=== PATIENT | male | born 1955 | race Caucasian/White ===

== ENCOUNTER 2021-02-08 11:38 | Day surgery (SDC) | payer OTHER, SELFPAY ==
[2021-02-08] VITALS (7 sets, daily range): BP systolic 110–152; BP diastolic 76–92; PULSE 78–85; RESP 16–18; TEMP 36.3–36.9; O2SAT 97–100; BMI 20.2
[2021-02-08] MEDS: Lactated Ringers 1,000 ML 100 ML IV (12:51)
--- NOTE | 2021-02-08 13:14 | HP.PCM_ITS ---
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: No Is patient in pain?: No Allergies No Known Allergies Allergy (Verified 02/02/21 09:13) Medications acetaminophen 325 mg capsule 650 mg PO Q4H PRN cap 01/24/21 [History Confirmed 02/02/21] albuterol sulfate 90 mcg/actuation aerosol inhaler 1 puff INHALATION Q4H PRN g 01/24/21 [History Confirmed 02/02/21] ascorbic acid (vitamin C) 500 mg capsule 500 mg PO DAILY cap 01/24/21 [History Confirmed 02/02/21] cholecalciferol (vitamin D3) 25 mcg (1,000 unit) capsule 25 mcg PO DAILY 01/24/21 [History Confirmed 02/02/21] vitamin B complex 1 tab PO DAILY 01/24/21 [History Confirmed 02/02/21] PFSH Medical History Disorder of tendon Mass of right lung Surgical History History of lung biopsy Hx of appendectomy Family History Mother Alzheimer disease Father Lung cancer Social History current occupational status: employed Smoking Status: Former smoker alcohol intake: current substance use type: marijuana HPI HPI HPI: LARA MARTÍNEZ, is a 65 M who presents to the office today for chest port placement. Patient had a right lung cancer and had right pneumonectomy presents for right chest port placement. ROS General General: Yes weight change and fatigue; No appetite, colon cancer, breast cancer or weakness HEENT HEENT: No difficulty swallowing, eye injury, eye surgery, swollen glands or hoarseness Endo Endocrine: No thyroid disease, diabetes mellitus, thyroid cancer, Hair loss, heat intolerance or cold intolerance Skin Skin: No rash or changing moles Breast Breast: No left breast lump, right breast lump, nipple discharge, breast pain, abnormal mammogram, abnormal US or breast enlargement Musc Musculoskeletal: No back problems, arthritis, rheumatoid arthritis, gout or joint pain Cardio Cardiovascular: No murmur, pacemaker, heart disease, atrial fibrillation, high blood pressure, heart attack, heart stent, palpitations, shortness of breat with exertion or chest pain Psych Psychiatric: No depression, anxiety or hearing voices Resp Respiratory: Yes shortness of breath, No sleep apnea, No cough, Yes COPD, No ast hma, No emphysema and No wheezing Gastro Gastrointestinal: No abdominal pain, No nausea or vomiting, No diarrhea, No constipation, No blood in stool, No acid reflux, No hemorrhoids, No ulcers, No gallbladder problem and No black,tarry stools Alonzo Hematologic: No blood thinners, No blood disorders, No bleeding, No anemia and No blood clots Neuro Neurologic: No system reviewed and no additional complaints, except as documented, No as per HPI, No abnormal gait, No abnormal hearing, No abnormal movements, No abnormal speech, No behavioral changes, No burning sensations, No confusion, No convulsions, No disequilibrium, No dizziness, No localized weakness, No frequent falls, No headache(s), No lack of coordination, No loss of vision, No memory loss, No numbness, No other visual disturbances, No radicular pain, No restless legs, No sensory deficit, No syncope, No tingling, No tremor(s), No weakness and No other Exam Const General: cooperative Orientation: alert and oriented x3 HENMT Head: normal to inspection Neck Neck: normal visual inspection and full ROM Chest Chest palpation & inspection: normal inspection of the chest Resp Effort & Inspection: normal respiratory effort Auscultation: clear to auscultation bilaterally Cardio Rate: regular rate Rhythm: regular rhythm GI Inspection: non-distended Palpation: soft and nontender Skin General: no rashes or lesions noted Neuro General: patient alert and patient oriented x3 Extrem General: full ROM Psych Appearance: grossly normal Mental Status: mental status grossly normal Assessment and Plan Assessment and Plan (1) Primary lung adenocarcinoma: Status: Acute Qualifiers: Laterality: right Qualified Code(s): C34.91 - Malignant neoplasm of unspecified part of right bronchus or lung Comment: R lung adenocarcinoma stage IIIA(pT3 pN1 M0) s/p R pneumonectomy. Discussed disease status, adjuvant chemotherapy, risks, benefits and side effects. Pt agreed to proceed. Discussed Cisplatin and Alimta IV x 4 cycles. If EGFR is positive then will do EGFR betty after chemotherapy. (2) Encounter for adjustment and management of vascular access device: Status: Acute Plan - Dr. Robert Fonseca MD: I discussed chest port placement with the patient in detail. I discussed the risks including but not limited to bleeding, infection, DVT. Patient understands the risks and is willing to proceed with right chest port placement. Robert Fonseca MD Pager: [facility] [address] [place] [address], [address] [place] [address] Office: I have re-examined the patient. There are no clinical changes since date of exam.
--- NOTE | 2021-02-08 13:33 | SUR.PREOP ---
R AC infiltration; LR infiltration. Patient's came and told this nurse. This nurse stopped gravity gtts. IV discontinued in r ac. New IV started in left AC. 22g. Good blood return noted and gtt to gravity. Patient tolerated well.
[2021-02-08] MEDS: Cefazolin 2 GM in 0.9% Normal Saline 100 ML IV (14:40)
[2021-02-08] MEDS: Bupivacaine Mpf 0.5% 30 ML VIAL (14:57)
[2021-02-08] MEDS: Lidocaine 1% /Epi 1:100 (20ml) 20 ML Vial (14:57)
--- NOTE | 2021-02-08 15:30 | RAD_ITS ---
STUDY: X-RAY CHEST REASON FOR EXAM: Male, 65 years old. Line placement -- in pacu TECHNIQUE: Single AP portable view of the chest. COMPARISON: None. FINDINGS: A right-sided Port-A-Cath has been placed. The tip is at the junction of the superior vena cava and right atrium. Large right pleural effusion with underlying infiltration and/or atelectasis. The left lung is clear. Normal size heart. Normal mediastinum and bebeto. Normal visualized pulmonary arteries. Normal visualized aortic arch and descending thoracic aorta. There are diffuse degenerative changes of the visualized thoracic spine. Normal visualized ribs, clavicles, and shoulders. There is no demonstrated abnormality of the visualized soft tissue structures of the upper abdomen. RAD/CXR for Line Placement IMPRESSION: The tip of the right nilay catheter is at the junction of the superior vena cava and right atrium. Large right pleural effusion with underlying infiltration and/or atelectasis. The left lung is clear. Electronically Signed: Sal Wiseman MD at 15:55 EDT , Service support ,
--- NOTE | 2021-02-08 15:31 | PCM.OPRPT ---
Problems Associated Problem List Diagnoses (1) Primary lung adenocarcinoma: (2) Encounter for adjustment and management of vascular access device: Report of Operation Date of Procedure: 02/08/21 Pre-Operative Diagnosis: Lung cancer need for vascular access for chemotherapy Post-Operative Diagnosis: Same Surgery/Procedure Performed:: Ultrasound and fluoroscopy guided right chest port placement utilizing right IJ Description of Procedure: After obtaining informed consent patient was brought back to the operating room MAC anesthesia was induced and the right chest and neck were prepped in normal sterile fashion. Ultrasound was used to evaluate both IJs and the right IJ was selected. Next, using a needle, the right IJ was accessed and a guidewire was passed on into the superior vena cava under fluoroscopy guidance. A small incision was made over the puncture site and the dilator introducer was placed over the guidewire. Next this was capped and the pocket was made for the port. 1% lidocaine with epinephrine was injected in the proposed port site. An incision was made with scalpel. Electrocautery was used to make a pocket under the skin and subcutaneous tissue. Hemostasis was obtained. Next, the catheter was tunneled up to the neck incision site and placed through the introducer. The peel-away introducer was removed and the position of the catheter was confirmed on fluoroscopy. Next, the catheter was trimmed and attached to the port with the locking device. Interrupted 2-0 Vicryl sutures were used to anchor the port to the chest wall and then the port was placed inside the pocket. The pocket was then flushed with saline and the port irrigated with saline. There was good blood return and the port flushed easily. Next, heparin was injected into the port. The skin was closed with subcutaneous interrupted 3-0 Vicryl sutures. A single 3-0 Vicryl sutures placed under the skin at the neck incision site. Steri-Strips were placed as well as op sites. Patient tolerated procedure well, was taken to PACU in stable condition. Chest x-ray will be obtained. Grafts/Implants Used: 8 [place] PowerPort Admit VTE Documentation VTE Mechan Device Prophylaxis: SCD's
--- NOTE | 2021-02-08 15:32 | EX.PCM.DISCH ---
Discharge Instructions Procedure Port-A-Cath Diet Discharge Diet: Light diet - advance as tolerated (Pain medication may cause nausea. You should typically eat light foods as you take your pain medication.) Activity Discharge Activity: Return to Normal Activity and May Shower (with your bandage in place in 1-2 days after surgery. ) Dressing / Incision Call your doctor if your incision/area has: Continuous Slow Oozing, Sudden Increased Bleeding, Increased Pain/ Swelling, Increased Redness and Foul Smelling Discharge Call your doctor if you observe: Fever of 101 or Higher Remove Dressing in: 2 days Cleanse incision/area with: Soap & Water Follow Up Care Please Follow Up With: Robert Fonseca MD When: as needed [phone] Test Results: Test results from this visit will be discussed in further detail at your follow-up appointment, if applicable. Discharge Plan Admission Attending Provider: Robert Fonseca Primary Care Provider: Raj Askew Discharge Orders/Prescriptions Prescriptions: No Action acetaminophen 325 mg capsule 650 mg PO Q4H PRN (Reason: Pain) RF: 0 albuterol sulfate 90 mcg/actuation HFA aerosol inhaler 1 puff inhalation Q4H PRN (Reason: shortness of breath or wheezing) RF: 0 ascorbic acid (vitamin C) 500 mg capsule 500 mg PO DAILY RF: 0 cholecalciferol (vitamin D3) 25 mcg (1,000 unit) capsule 25 mcg PO DAILY RF: 0 vitamin B complex Tablet 1 tab PO DAILY RF: 0 Referrals / Follow Up: Raj Askew DO [Primary Care Provider] - Disposition Disposition (needs filled in before D/C Order can be placed): Home, Self Care
== END 2021-02-08 16:30 | disposition home or self-care (01) ==
LOC: SDC 11:43 → AC 11:44
PROVIDERS: PCP Student in an Organized Health Care Education/Training Program; Referring Provider Surgery; Visit Provider Surgery
PROC: (CPT 36561; principal; 2021-02-08 13:20)
DX: Z45.2 Encounter for adjustment and management of vascular access device (principal); C34.91 Malignant neoplasm of unspecified part of right bronchus or lung; Z87.891 Personal history of nicotine dependence; Z90.2 Acquired absence of lung [part of]; J44.9 Chronic obstructive pulmonary disease, unspecified; G25.81 Restless legs syndrome
CPT/HCPCS: 00532; 36561; 71045; 77001; J7120; C1788

== ENCOUNTER → 2021-03-07 13:46 | Outpatient (CLI) | payer OTHER, SELFPAY ==
--- NOTE | 2021-03-07 13:49 | EKG12_ITS ---
Test Reason : Blood Pressure : / mmHG Vent. Rate : 081 BPM Atrial Rate : 081 BPM P-R Int : 142 ms QRS Dur : 080 ms QT Int : 378 ms P-R-T Axes : 025 031 059 degrees QTc Int : 439 ms Normal sinus rhythm Normal ECG Confirmed by MARK BOLAÑOS, MIRIAN ([id number]), map editor JUAN MUNOZ ([id number]) on 03/08/2021 8:39:53 AM Referred By: Lissa Alex Confirmed By:MIRIAN FLORES MD
== END ==
PROVIDERS: PCP Student in an Organized Health Care Education/Training Program; Referring Provider Nurse Practitioner Family; Visit Provider Nurse Practitioner Family
DX: R07.9 Chest pain, unspecified (principal)
CPT/HCPCS: 36591; 80053; 83615; 85025; 93005; 96360; 96361; J7030; A4216

== ENCOUNTER 2021-05-25 12:33 | Outpatient (CLI) | payer OTHER, SELFPAY ==
--- NOTE | 2021-05-25 12:37 | CT_ITS ---
STUDY: CT CHEST T ABDOMEN WITH CONTRAST REASON FOR EXAM: Male, 65 years old. NSCLC; surveillance; RUQ pain RADIATION DOSAGE (If Supplied By Facility): CTDIvol = ( 8.75 ) mGy, DLP = ( 379.11 ) mGycm TECHNIQUE: Transaxial imaging was performed following intravenous administration of IV 100mL Isovue-300. Individualized dose optimization techniques were used for this CT. COMPARISON: No relevant priors. FINDINGS: CHEST A right-sided portacatheter is in situ. The tip is in the superior vena cava. The patient is status post right pneumonectomy. The right hemithorax is filled with fluid. There is shift of the heart and mediastinal structures towards the right side of the midline. There is compensatory hyperinflation of the left lung. There is a 9.3 mm spiculated nodular density in the anterior aspect of the left lower lobe abutting the anterior aspect of the left major fissure. Correlation with a PET scan is recommended. There is also evidence of a 3.5 mm noncalcified nodule in the peripheral lateral aspect of the anterior portion of the left lower lobe as seen on axial image #44. There are calcifications of the coronary arteries. Normal mediastinum. Normal hilar regions. Normal unenhanced pulmonary arteries. There is atherosclerotic calcification of the aortic arch with tortuosity and elongation of the aortic arch and descending thoracic aorta. There are multi-level degenerative changes of the thoracic spine. ABDOMEN Normal liver. The gallbladder is contracted. Normal spleen. Normal pancreas. Normal bilateral adrenal glands. Normal right kidney. There is 9.2 mm cyst in the upper lateral aspect of the left kidney. Normal visualized stomach. Normal small intestine. Normal colon. The appendix is visualized and appears normal. There is diffuse atherosclerotic calcification of the abdominal aorta and its major visceral branches, without a demonstrated aneurysm. Normal inferior vena cava. Normal retroperitoneum. Normal abdominal wall. There are diffuse degenerative changes of the visualized lumbar spine. CT/CT Chest AND Abd W/ Contrast IMPRESSION: 19.3 mm spiculated nodule in the anterior aspect of the left lower lobe. There is also evidence of a 3.5 mm noncalcified nodule in the peripheral lateral aspect of the left lower lobe. Correlation with a PET scan is recommended. The patient is status post right pneumonectomy with the fluid filling the right hemithorax. This is a normal postoperative appearance. Electronically Signed: Sal Wiseman MD at 14:39 EST ,
== END 2021-05-25 23:59 | disposition home or self-care (01) ==
PROVIDERS: PCP Student in an Organized Health Care Education/Training Program; Referring Provider Nurse Practitioner Family; Visit Provider Nurse Practitioner Family
DX: C34.91 Malignant neoplasm of unspecified part of right bronchus or lung (principal); R10.11 Right upper quadrant pain
CPT/HCPCS: 71260; 74160; Q9967

== ENCOUNTER 2021-06-05 08:19 | Outpatient (CLI) | payer OTHER, SELFPAY ==
--- NOTE | 2021-06-05 13:04 | PFTCOMP_ITS ---
COMPLETE PULMONARY FUNCTION TEST INTERPRETATION Brief HPI: Patient is a 65 year old male, currently under the care of Dr. Worrell, who presents to [facility] for complete pulmonary function tests secondary to diagnosis of COPD. Respiratory therapist reports good effort and reproducible results. Interpretation: Forced expiration spirometry shows a severe large airways obstructive ventilatory defect with an FEV1 of 49% predicted. There is no significant bronchodilator response by strict ATS criteria. Spirograms are of good quality and plateau slowly, indicating slowly emptying areas of the lungs. The respiratory flow volume loop shows decreased expiratory flow rates at all lung volumes consistent with airway obstruction. Lung volumes by body plethysmography show a decreased total lung capacity at 4.1 L, 70% predicted. All other lung volumes are reduced symmetrically. Diffusion capacity by carbon monoxide is normal at 73% predicted. The airway resistance is slightly elevated. No previous pulmonary function tests were available for review. Impression: Irreversible severe mixed ventilatory defect with relatively preserved diffusion capacity
== END 2021-06-05 23:59 | disposition home or self-care (01) ==
PROVIDERS: PCP Student in an Organized Health Care Education/Training Program; Referring Provider Internal Medicine Critical Care Medicine; Visit Provider Internal Medicine Critical Care Medicine
DX: J44.9 Chronic obstructive pulmonary disease, unspecified (principal)
CPT/HCPCS: 94060; 94726; 94729

== ENCOUNTER 2021-06-19 12:25 | Outpatient (CLI) | payer OTHER, SELFPAY ==
[2021-06-19 12:50] VITALS: PULSE 85; PULSE 86; PULSE 87; PULSE 89; PULSE 90; PULSE 91; O2SAT 95; O2SAT 96; O2SAT 97; O2SAT 98; O2SAT 99
--- NOTE | 2021-06-19 15:44 | PCM.PSN.6M ---
PSN 6 Minute Walk Test 6 Minute Walk Test 6 Minute Walk Test: 6 Minute Walk Test PSN:6-Minute Walk Test Start: 06/19/21 12:50 Freq: Status: Active Protocol: [id number].6MINW Document 06/19/21 12:50 GARRETT (Rec: 06/19/21 12:52 GARRETT [id number]) 6 Minute Walk Test Date Performed 06/19/21 Time Performed 12:30 Height 5 ft 7 in Weight: 59.874 kg Weight in Pounds 132.[address]: Dioni Worrell Assistive device used: None Pre-test Oxygen Delivery Method Room Air Pulse Ox (%) 99 Pulse Rate (60-100 beats/min) 86 Dyspnea Allyssa Scale (0-10) 0 Exertion Allyssa Scale (6-20) 6 1st minute Oxygen Delivery Method Room Air Pulse Ox (%) 99 Pulse Rate (60-100 beats/min) 87 2nd minute Oxygen Delivery Method Room Air Pulse Ox (%) 97 Pulse Rate (60-100 beats/min) 89 3rd minute Oxygen Delivery Method Room Air Pulse Ox (%) 96 Pulse Rate (60-100 beats/min) 90 4th minute Oxygen Delivery Method Room Air Pulse Ox (%) 95 Pulse Rate (60-100 beats/min) 90 5th minute Oxygen Delivery Method Room Air Pulse Ox (%) 97 Pulse Rate (60-100 beats/min) 91 6th minute Oxygen Delivery Method Room Air Pulse Ox (%) 96 Pulse Rate (60-100 beats/min) 90 Dyspnea Allyssa Scale (0-10) 3 Exertion Allyssa Scale (6-20) 12 Post-test Oxygen Delivery Method Room Air Pulse Ox (%) 98 Pulse Rate (60-100 beats/min) 85 Interpretation Interpretation: The patient was able to ambulate 1072 feet over the course of 6 minutes on room air with no assistive devices or breaks. The patient experienced no significant desaturations or tachycardia during testing. These findings are consistent with a musculoskeletal limitation exercise tolerance. Recommendations Recommendations: No supplemental oxygen is indicated at this time.
== END 2021-06-19 23:59 | disposition home or self-care (01) ==
LOC: PSN 12:26
PROVIDERS: PCP Student in an Organized Health Care Education/Training Program; Referring Provider Internal Medicine Critical Care Medicine; Visit Provider Internal Medicine Critical Care Medicine
DX: J44.9 Chronic obstructive pulmonary disease, unspecified (principal)
CPT/HCPCS: 94618

== ENCOUNTER 2021-06-20 10:29 | Emergency (ER) | payer OTHER, SELFPAY ==
[2021-06-20 10:30] VITALS: BP 168/91; PULSE 81; RESP 18; TEMP 36.6; O2SAT 100; BMI 20.7
--- NOTE | 2021-06-20 10:44 | EDS_ITS ---
HPI History of Present Illness Chief Complaint: Back Informant: patient Onset/Context/Timing Onset: Weeks (1.5) Timing: Intermittent Quality: Sharp Location: Thoracic Worsened by: improves with - (Coughing) Relieved by: Nothing Associated Symptoms Associated Symptoms: Negative for Numbness, Tingling, Radiation to Right Leg, Radiation to Left Leg, Fever, Abdominal Pain, Dysuria, Unable to Ambulate, Unable to Transfer, Urinary Retention, Urinary Incontinence, Constipation and Fecal Incontinence Narrative Narrative: Patient presents with back pain that has been getting worse over the past week and a half. Patient states it has been intermittent. Patient states it is over the left thoracic paraspinal area. Patient describes the pain as sharp. Patient denies any trauma or injury. Patient denies any radiation of the pain. Patient denies any paresthesias or weakness. Patient denies any bowel or bladder changes. Patient denies any saddle anesthesia. [facility] Medical History Alcohol use Arthritis Cancer Chest pain CINV (chemotherapy-induced nausea and vomiting) Constipation Dehydration Disorder of tendon Encounter for chemotherapy management Encounter for education Former smoker Hx of cancer of lung Leg cramps Marijuana use Mass of right lung Restless legs RUQ pain Shortness of breath on exertion Home Medications acetaminophen 325 mg capsule 650 mg PO Q4H PRN cap 01/24/21 [History Last Taken Unknown] albuterol sulfate 90 mcg/actuation aerosol inhaler 1 puff INHALATION Q4H PRN g 01/24/21 [History Last Taken Unknown] ascorbic acid (vitamin C) 500 mg capsule 500 mg PO DAILY cap 01/24/21 [History Last Taken Unknown] cholecalciferol (vitamin D3) 25 mcg (1,000 unit) capsule 25 mcg PO DAILY 01/24/21 [History Last Taken Unknown] vitamin B complex 1 tab PO DAILY 01/24/21 [History Last Taken Unknown] dexamethasone 4 mg tablet 4 mg PO .COMPLEX #3 tab 02/15/21 [Rx Last Taken Unknown] folic acid 1 mg tablet 1 mg PO DAILY #90 tab 02/15/21 [Rx Last Taken Unknown] lidocaine-prilocaine 2.5 %-2.5 % topical cream 1 applic TOPICAL ONCE PRN 30 Days #30 g 02/15/21 [Rx Last Taken Unknown] ondansetron 8 mg disintegrating tablet 8 mg PO Q8H PRN #30 tab 02/15/21 [Rx Last Taken Unknown] pantoprazole 40 mg tablet,delayed release 40 mg PO DAILY #30 tab 03/07/21 [Rx Last Taken Unknown] Allergy/AdvReac Type Severity Reaction Status Date / Time No Known Allergies Allergy Verified 06/20/21 10:32 Family History Mother Alzheimer disease Father Lung cancer Surgical History History of lung biopsy Hx of appendectomy Social History current occupational status: employed Smoking Status: Former smoker quit date: 10/19/20 pack-years: 1 Tobacco: How many years used: 45 second hand exposure: No alcohol intake: current details: 8 beers daily substance use type: marijuana christophe/restorationism: Baptism seatbelt use: sometimes do you feel safe at home: Yes ROS ROS ED Constitutional Constitutional ED: Denies chills or fever(s) Eyes Eyes: Denies blurry vision or change in vision ENT ENT ED: Denies rhinorrhea or sore throat Cardiovascular Cardiovascular: Denies chest pain or palpitations Respiratory/Chest Respiratory/Chest: Reports cough; Denies dyspnea Gastrointestinal Gastrointestinal: Denies nausea or vomiting Genitourinary Genitourinary ED: Denies dysuria or hematuria Musculoskeletal Musculoskeletal: Reports back pain; Denies neck pain Integumentary Denies abscess or rash Neurologic Neurologic: Denies headache(s) or weakness Allergic/Immunologic Allergic/Immunologic ED: Denies mouth swelling or urticaria EXAM Physical Exam Const Vital Signs: 06/20/21 10:30 Temperature 98 F Temperature Source Temporal Pulse Rate 81 Respiratory Rate 18 Blood Pressure 168/91 H Blood Pressure Mean 116 Pulse Ox 100 Oxygen Delivery Method Room Air Positive well nourished and well developed General Appearance ED: well developed and NAD HEENT Reports moist mucous membranes Neck supple and no JVD Resp normal respiratory effort Auscultation: diminished lung sounds right Cardio regular rate and regular rhythm Back/Spine Thoracic Spine / Upper Back: paraspinal muscle tenderness left Lumbar Spine / Lower Back: ROM limited and straight leg raise negative bilaterally Extremity normal to inspection General Extremety ED: Negative for edema or tenderness General Extremity: Negative for edema Neuro oriented x3 and no sensory deficits noted Sensorium / Orientation: alert Motor Exam: strength 5/5 throughout Psych mental status grossly normal MDM MDM MDM Narrative Medical decision making narrative: X-rays of the thoracic spine were obtained. There are 3 views. On my interpretation, there is no acute fracture. There is no evidence of bony metastasis. There is no compression. Radiologist also interpreted the x-rays and agrees. Patient was advised of his findings. Patient was instructed use ice to the area. Patient was instructed to follow-up with his primary care physician for further evaluation in 5 to 7 days. Patient understood and was agreeable with the plan. All questions were answered. Radiography Diagnostic Testing: Clinical Impression(s) from Imaging Studies Thoracic Spine X-Ray 06/20/21 11:00 IMPRESSION: Degenerative changes with a mild levoscoliosis, no acute findings Electronically Signed: Will Freitas MD at 11:27 EDT Reading Location ID and State: [address] [place] [address] , Service support , Discharge Plan Triage Chief Complaint: Back ED Provider: Jalen Toure Dx/Rx/DC Orders Clinical Impression: Acute thoracic myofascial strain Instructions: ED Thoracic Spine Strain Prescriptions: No Action acetaminophen 325 mg capsule 650 mg PO Q4H PRN (Reason: Pain) RF: 0 albuterol sulfate 90 mcg/actuation HFA aerosol inhaler 1 puff inhalation Q4H PRN (Reason: shortness of breath or wheezing) RF: 0 ascorbic acid (vitamin C) 500 mg capsule 500 mg PO DAILY RF: 0 cholecalciferol (vitamin D3) 25 mcg (1,000 unit) capsule 25 mcg PO DAILY RF: 0 vitamin B complex Tablet 1 tab PO DAILY RF: 0 lidocaine-prilocaine 2.5-2.5 % cream 1 applic topical ONCE PRN (Reason: port access) 30 Days Qty: 30 RF: 2 ondansetron 8 mg tablet,disintegrating 8 mg PO Q8H PRN (Reason: nausea and vomiting) Qty: 30 RF: 2 folic acid 1 mg tablet 1 mg PO DAILY Qty: 90 RF: 1 dexamethasone 4 mg tablet 4 mg PO .COMPLEX Qty: 3 RF: 3 pantoprazole [Protonix] 40 mg tablet,delayed release (DR/EC) 40 mg PO DAILY Qty: 30 RF: 1 Stand Alone Forms: Work Status Form Primary Care Provider: Raj Askew Referrals: Raj Askew DO [Primary Care Provider] - 5-7 Days Disposition Disposition: Home, Self Care
--- NOTE | 2021-06-20 11:00 | RAD_ITS ---
STUDY: X-RAY - THORACIC SPINE REASON FOR EXAM: Male, 65 years old. Mid back pain TECHNIQUE: 3 view(s) of the thoracic spine were obtained. COMPARISON: None. FINDINGS: Normal kyphosis of the thoracic spine. There is a mild levoscoliosis. There is multilevel endplate spondylosis of the thoracic vertebrae. There is multilevel disc space narrowing of the thoracic spine. Evidence of previous right pneumonectomy RAD/Thoracic Spine 3 Views IMPRESSION: Degenerative changes with a mild levoscoliosis, no acute findings Electronically Signed: Will Freitas MD at 11:27 EDT ,
== END 2021-06-20 12:06 | disposition home or self-care (01) ==
PROVIDERS: Emergency Provider Emergency Medicine; PCP Student in an Organized Health Care Education/Training Program; Visit Provider Emergency Medicine
DX: S29.019A Strain of muscle and tendon of unspecified wall of thorax, initial encounter (principal); F12.90 Cannabis use, unspecified, uncomplicated; Z87.891 Personal history of nicotine dependence; X58.XXXA Exposure to other specified factors, initial encounter
CPT/HCPCS: 72072; 99282

== ENCOUNTER → 2021-09-11 | Outpatient (CLI) | payer OTHER, SELFPAY ==
--- NOTE | 2021-09-11 07:41 | CT_ITS ---
STUDY: CT CHEST WITHOUT CONTRAST REASON FOR EXAM: Male, 66 years old. LUNG CANCER/NODULE IN LEFT LUNG. PRIOR RIGHT PNEUMONECTOMY. RADIATION DOSAGE (If Supplied By Facility): CTDIvol = ( 7.9 ) mGy, DLP = ( 232.45 ) mGycm TECHNIQUE: Transaxial imaging was performed without the administration of intravenous contrast material. Individualized dose optimization techniques were used for this CT. COMPARISON: Comparison is made with prior study dated 05/25/2021. FINDINGS: CHEST The patient is status post right pneumonectomy with shift of the heart and mediastinal structures into the right hemithorax. Stable fluid-filled right hemithorax in keeping with a normal post pneumonectomy appearance. Compensatory hyperinflation of the left lung. Stable 9.3 mm micronodule in the anterior aspect of the left lower lobe abutting the anterior aspect of the left major fissure. Stable 3.5 mm noncalcified nodule in the peripheral lateral aspect of the anterior portion left lower lobe as seen on axial image #49. Normal heart and pericardium. Normal mediastinum. Normal hilar regions. Normal unenhanced pulmonary arteries. Normal aorta arch and descending thoracic aorta. There are degenerative changes of the thoracic spine. There is no demonstrated abnormality of the visualized upper abdomen. CT/Chest WITH Contrast IMPRESSION: Stable examination. Electronically Signed: Sal Wiseman MD at 9:15 EDT ,
[2021-09-11 07:51] LABS: CREATININE FINGERSTICK < 0.9 mg/dL (0.70-1.30); EGFR FINGERSTICK > 60.0000 mL/min (>60)
[2021-09-11] MEDS: 0.9% Saline Lock 10 ML Syringe IV (08:06)
== END | disposition home or self-care (01) ==
PROVIDERS: PCP Student in an Organized Health Care Education/Training Program; Referring Provider Internal Medicine Medical Oncology; Visit Provider Internal Medicine Medical Oncology
DX: C34.11 Malignant neoplasm of upper lobe, right bronchus or lung (principal); R91.1 Solitary pulmonary nodule
CPT/HCPCS: 71260; Q9967; A4216

== ENCOUNTER → 2022-03-12 | Outpatient (CLI) | payer OTHER, SELFPAY ==
--- NOTE | 2022-03-12 07:38 | CT_ITS ---
STUDY: CT CHEST WITH CONTRAST REASON FOR EXAM: Male, 66 years old. NSCLC LEFT LUNG NODULES -- IV CONTRAST ONLY RADIATION DOSAGE (If Supplied By Facility): CTDIvol = ( 9.25 ) mGy, DLP = ( 212.05 ) mGycm TECHNIQUE: Transaxial imaging was performed following intravenous administration of IV 100mL Isovue-300. Multiplanar coronal and sagittal images were reformatted. Individualized dose optimization techniques were used for this CT. COMPARISON: Comparison is made with prior study dated 09/11/2021. FINDINGS: CHEST Once again, the patient is status post right pneumonectomy with shift of the heart and mediastinal structures into the right hemithorax. Stable fluid-filled right hemithorax. This is a normal post pneumonectomy appearance. There is evidence of compensatory hyperinflation of the left lung. Small left pleural effusion. This is new as compared to prior study. Since prior study, there has been an increase in size of the spiculated nodule in the anterior aspect of the left upper lobe. It presently measures 1.3 cm x 0.7 cm. This is best seen on axial image #50. Stable 3.5 mm noncalcified nodule in the peripheral lateral aspect of the anterior portion of the left lower lung as seen on axial image #52. There are calcifications of the coronary arteries. Normal mediastinum. Normal hilar regions. Normal unenhanced pulmonary arteries. There is atherosclerotic calcification of the aortic arch with tortuosity and elongation of the aortic arch and descending thoracic aorta. There are degenerative changes of the thoracic spine. There is no demonstrated abnormality of the visualized upper abdomen. CT/Chest WITH Contrast IMPRESSION: Status post right pneumonectomy with shift of the heart and mediastinal structures into the right hemithorax. Since prior study, there has been a progression of increased size in the nodule in the anterior aspect of the left lower ureter presently measures 1.3 cm x 0.7 cm. Electronically Signed: Sal Wiseman MD at 12:35 EST ,
[2022-03-12] MEDS: 0.9 % NaCl (Sterile) Posiflush 10 mL IV (08:05)
[2022-03-12 08:10] LABS: CREATININE FINGERSTICK < 0.9 mg/dL (0.70-1.30); EGFR FINGERSTICK > 60.0000 mL/min (>60)
== END | disposition home or self-care (01) ==
LOC: CT 07:37
PROVIDERS: PCP Student in an Organized Health Care Education/Training Program; Visit Provider Internal Medicine Medical Oncology
DX: C34.91 Malignant neoplasm of unspecified part of right bronchus or lung (principal)
CPT/HCPCS: 71260; Q9965; A4216

== ENCOUNTER → 2022-09-11 | Outpatient (CLI) | payer MEDICARE, OTHER, SELFPAY ==
--- NOTE | 2022-09-11 13:40 | CT_ITS ---
INDICATION: MONITOR-LUNGCA/LUNG NODULES EXAMINATION: CT CHEST WITH CONTRAST - CT Chest W/ Contrast Injection TECHNIQUE: Helically acquired images were obtained of the chest following IV contrast. A radiation dose optimization technique was used for this scan. IV Contrast dosage and agent: RADIATION DOSAGE (If Supplied By Facility): CTDIvol = ( 8.09 ) mGy, DLP = ( 252.71 ) mGycm COMPARISON: FINDINGS: LUNGS, PLEURA AND LARGE AIRWAYS: Status post right pneumonectomy with a right shifted mediastinum. There is a spiculated left lower lobe nodule measuring 1 cm, larger than on previous study, image 49 series 4. An adjacent 7 mm nodule laterally has also increased in size. 3 mm left lower lobe nodule, image 43 series 4. 4 mm left upper lobe nodule, image 35 series 4. These nodules have also increased in size. No pneumothorax. THYROID: No thyroid lesions. HEART AND PERICARDIUM: Heart size is normal. No pericardial effusion. VESSELS: Thoracic aorta is not dilated. No aortic dissection. No obvious central pulmonary embolism although this study was not performed with the pulmonary embolism protocol. MEDIASTINUM AND SABINE: No mediastinal or hilar adenopathy. Esophagus is unremarkable. No hiatal hernia. UPPER ABDOMEN: No acute pathology. BONES: No suspicious lytic or blastic abnormality. CT/Chest WITH Contrast IMPRESSION: Status post right pneumonectomy. All described left pulmonary nodular lesions have increased in size since the previous study. Electronically Signed: Major Rm DO at 21:57 EDT ,
[2022-09-11] MEDS: 0.9 % NaCl (Sterile) Posiflush 10 mL IV (13:55)
[2022-09-11 14:04] LABS: CREATININE FINGERSTICK 1.2 mg/dL (0.70-1.30); EGFR FINGERSTICK > 60.0000 mL/min (>60)
== END | disposition home or self-care (01) ==
LOC: CT 13:39
PROVIDERS: PCP Student in an Organized Health Care Education/Training Program; Referring Provider Internal Medicine Medical Oncology; Visit Provider Internal Medicine Medical Oncology
DX: C34.91 Malignant neoplasm of unspecified part of right bronchus or lung (principal); R91.8 Other nonspecific abnormal finding of lung field
CPT/HCPCS: 71260; Q9967; A4216

== ENCOUNTER → 2022-11-05 | Outpatient (CLI) | payer MEDICARE, OTHER, SELFPAY ==
--- NOTE | 2022-11-05 08:44 | CT_ITS ---
STUDY: CT CHEST WITHOUT CONTRAST REASON FOR EXAM: Male, 67 years old. NEW LEFT LUNG NODULE RADIATION DOSAGE (If Supplied By Facility): CTDIvol = ( 9.94 ) mGy, DLP = ( 324.51 ) mGycm TECHNIQUE: Transaxial imaging was performed without the administration of intravenous contrast material. Individualized dose optimization techniques were used for this CT. COMPARISON: Comparison is made with prior examination dated September 11, 2022. FINDINGS: CHEST The patient was initially brought in for possible biopsy of the left upper lobe nodule. The patient was in the prone position. The suspicious nodule in the left upper lobe was difficult for access due to the overlying rib and scapula. The biopsy was canceled. The patient is status post left pneumonectomy. CT/Limited or Localized F/U CT IMPRESSION: The biopsy was canceled. No access to the nodule in the left upper lobe due to overlying scapula and rib. Electronically Signed: Sal Wiseman MD at 11:03 EDT ,
[2022-11-05 08:50] LABS: Absolute Lymphocyte Count 0.41 X10^3/uL (0.83-4.51); Absolute Neutrophil Count 5.3 X10^3/uL (2.0-7.7); Basophil# 0.04 X10^3/uL; Basophil% 0.6 % (0-1); Eosinophil# 0.13 X10^3/uL; Hematocrit 40.1 % (40-54); Hemoglobin 12.8 g/dL (13.0-16.5); Lymphocyte # 0.41 X10^3/ul (0.83-4.51); Lymphocyte % 6.2 % (19-41); Mean Corp Hgb Conc 31.9 g/dL (32-36); Mean Corpuscular Hgb 29.5 pg (27.0-32.0); Mean Corpuscular Volume 92.4 fL (80-94); Mean Platelet Vol. 9.3 fl (6.2-12.0); Monocyte# 0.61 X10^3/uL; Monocyte% 9.3 % (0-10); NRBC Flagged by Analyzer 0 % (0-5); Neutrophil # 5.31 X10^3/uL (2.7-7.7); Neutrophil % 80.8 % (47-70); POSITIVE DIFFERENTIAL YES; Platelet Count 287 K/mm3 (150-450); RBC Distribution Width CV 14.2 % (11.6-14.6); RBC Distribution Width SD 48.4 fl (35.1-43.9); Red Blood Count 4.34 M/mm3 (4.6-6.2); White Blood Count 6.6 K/mm3 (4.4-11.0)
[2022-11-05 08:55] LABS: Differential Indicated SCAN CRITERIA MET
[2022-11-05 08:58] LABS: International Normalized Ratio 1.1; Prothrombin Time (Protime)PT. 13.8 SECONDS (11.7-14.9)
[2022-11-05 08:59] LABS: Partial Thromboplast Time 31.8 Seconds (24.1-36.2)
[2022-11-05 09:06] VITALS: BP 191/97; PULSE 70; RESP 19; TEMP 36.9; O2SAT 98; BMI 19.8
[2022-11-05] MEDS: 0.9% Saline Lock 10 ML Syringe IV ×2 (09:34→11:00)
[2022-11-05 09:45] LABS: Differential Comment SCANNED
[2022-11-05] MEDS: Midazolam 2 MG/2 ML Syringe IV (09:53)
[2022-11-05] MEDS: fentaNYL 100 MCG/2 ML Ampul IV (09:54)
[2022-11-05 09:58] VITALS: BP 121/74; BP 176/74; BP 224/101; PULSE 71; PULSE 72; PULSE 73; RESP 19; RESP 20; O2SAT 100; O2SAT 99
[2022-11-05 10:08] VITALS: BP 135/72; BP 191/97; PULSE 72; RESP 18; O2SAT 98
[2022-11-05 10:13] VITALS: BP 133/66; BP 191/97; PULSE 72; RESP 14; O2SAT 9
[2022-11-05 10:18] VITALS: BP 140/96; BP 191/97; PULSE 72; RESP 16; O2SAT 97
[2022-11-05 11:02] VITALS: BP 117/60; BP 191/97; PULSE 70; RESP 18; O2SAT 97
== END | disposition home or self-care (01) ==
LOC: CT 08:37
PROVIDERS: PCP Student in an Organized Health Care Education/Training Program; Referring Provider Internal Medicine Medical Oncology; Visit Provider Internal Medicine Medical Oncology
DX: Z01.818 Encounter for other preprocedural examination (principal); R07.89 Other chest pain
CPT/HCPCS: 36415; 76380; 85025; 85610; 85730; J7050; A4216

== ENCOUNTER 2023-03-06 12:04 | Emergency (ER) | payer MEDICARE, OTHER, SELFPAY ==
[2023-03-06 12:05] VITALS: BP 175/95; PULSE 91; RESP 16; TEMP 37.1; O2SAT 95; BMI 22.1
--- NOTE | 2023-03-06 13:01 | EX.ED.DYSGE1 ---
HPI History of Present Illness Chief Complaint: Hypertension Informant: patient Narrative Narrative: Presents to the ED referred down from oncology due to elevated blood pressure. Systolic blood pressure 170s. He states ongoing problems with blood pressure especially when being seen in the ED. He saw his PCP last time 4 months ago slightly elevated he asked if he should be on medications and was told no. He is being treated for lung cancer with chemotherapy last treatment 2 weeks ago. Denies chest pain shortness of breath nausea vomiting. Denies urinary symptoms. Denies fevers. He states he was sent down here for evaluation for potential treatment. Prior similar symptoms: Yes PFSH PFSH Medical History Alcohol use Arthritis Cancer Chest pain CINV (chemotherapy-induced nausea and vomiting) Constipation Dehydration Disorder of tendon Encounter for chemotherapy management Encounter for education Former smoker Hx of cancer of lung Leg cramps Marijuana use Mass of right lung Restless legs RUQ pain Shortness of breath on exertion Home Medications acetaminophen 325 mg capsule 650 mg PO Q4H PRN Pain 01/24/21 [History Last Taken Unknown] albuterol sulfate 90 mcg/actuation aerosol inhaler 1 puff inhalation Q4H PRN shortness of breath or wheezing 01/24/21 [History Last Taken Unknown] lidocaine-prilocaine 2.5 %-2.5 % topical cream 1 applic topical ONCE PRN port access 30 days #30 grams 02/15/21 [Rx Last Taken Unknown] dexamethasone 4 mg tablet 8 mg (2 x 4 mg) PO .COMPLEX #6 tabs 02/21/23 [Rx Last Taken Unknown] ondansetron 8 mg disintegrating tablet 8 mg PO Q8H PRN nausea and vomiting #30 tabs 02/21/23 [Rx Last Taken Unknown] prochlorperazine maleate 10 mg tablet 10 mg PO Q6H PRN nausea and vomiting #30 tabs 02/21/23 [Rx Last Taken Unknown] albuterol sulfate 90 mcg/actuation aerosol inhaler 2 puff inhalation Q4H PRN shortness of breath or wheezing #8.5 grams 03/06/23 [Rx Last Taken Unknown] ascorbate calcium (vitamin C) 500 mg tablet 500 mg PO DAILY 03/06/23 [History Last Taken Unknown] benzonatate 100 mg capsule 100 mg PO BID-TID PRN 03/06/23 [History Last Taken Unknown] budesonide 160 mcg-glycopyr 9 mcg-formot 4.8 mcg/actuation HFA inhaler (Breztri Aerosphere) 2 inh inhalation BID #10.7 grams 03/06/23 [Rx Last Taken Unknown] cholecalciferol (vitamin D3) 25 mcg (1,000 unit) capsule 25 mcg PO DAILY 03/06/23 [History Last Taken Unknown] guaifenesin 600 mg tablet, extended release 12 hr 600 mg PO Q12H PRN 03/06/23 [History Last Taken Unknown] mecobalamin (vitamin B12) 500 mcg chewable tablet mcg PO 03/06/23 [History Last Taken Unknown] naproxen sodium 220 mg tablet (Aleve) 220 mg PO BID PRN 03/06/23 [History Last Taken Unknown] sennosides 8.6 mg tablet (senna) 8.6 mg PO DAILY PRN 03/06/23 [History Last Taken Unknown] valsartan 80 mg tablet 80 mg PO DAILY #30 tabs 03/06/23 [Rx Last Taken Unknown] Allergy/AdvReac Type Severity Reaction Status Date / Time No Known Allergies Allergy Verified 03/06/23 12:06 Family History Mother Alzheimer disease Father Lung cancer Surgical History History of lung biopsy Hx of appendectomy Social History current occupational status: employed Smoking Status: Former smoker quit date: 10/19/20 pack-years: 1 Tobacco: How many years used: 45 second hand exposure: No alcohol intake: current details: 8 beers daily substance use type: marijuana 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[employer] 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 use: sometimes do you feel safe at home: Yes ROS ROS ED Constitutional Constitutional ED: Denies chills, fever(s) or sweats Eyes Eyes: Denies change in vision ENT ENT ED: Denies dysphagia or sore throat Cardiovascular Cardiovascular: Denies chest pain, leg edema, palpitations or racing heartbeat Respiratory/Chest Respiratory/Chest: Denies cough, dyspnea or dyspnea on exertion Gastrointestinal Gastrointestinal: Denies abdominal pain, diarrhea, nausea or vomiting Genitourinary Genitourinary ED: Denies dysuria, hematuria or urinary frequency Musculoskeletal Musculoskeletal: Denies back pain, extremity pain or neck pain Integumentary Denies rash or wounds Neurologic Neurologic: Denies headache(s), paresthesias or weakness EXAM Physical Exam Const Vital Signs: 03/06/23 12:05 Temperature 98.8 F Temperature Source Temporal Pulse Rate 91 Respiratory Rate 16 Blood Pressure 175/95 H Blood Pressure Mean 121 Pulse Ox 95 Oxygen Delivery Method Room Air Positive well nourished and well developed General Appearance ED: well developed and NAD HEENT Reports moist mucous membranes normocephalic and atraumatic Eyes PERRL, EOMs intact bilaterally and conjunctivae normal General Eye ED: Yes normal appearance of both eyes Neck no lymphadenopathy and supple General: Negative for tenderness Chest Wall Chest: Negative for tenderness Resp normal respiratory effort and normal air movement Effort and Inspection: symmetric chest movement; Negative for respiratory distress Cardio regular rate, regular rhythm and no murmurs Peripheral Pulses: pulses 2+ throughout GI normal to inspection, nondistended, normoactive bowel sounds and non-tender Palpation: Negative for guarding or rebound tenderness present Back/Spine no CVA tenderness and no thoracic nor lumbar tenderness Extremity normal to inspection General Extremety ED: Negative for edema or tenderness General Extremity: Negative for edema Neuro oriented x3 and no sensory deficits noted Sensorium / Orientation: awake and alert Skin no rashes or lesions noted and no wounds MDM MDM MDM Narrative Medical decision making narrative: Interventions / MDM: Differential diagnosis: Hypertension Diagnosis considered but do not suspect: No hypertensive emergency symptoms. My EKG interpretation: N/A Imaging independently reviewed and interpreted by myself: N/A External documents reviewed: N/A Test considered but not ordered:N/A ED course: Patient blood pressure started 175/95 on arrival. Reporting has been ongoing blood pressure. No hypertensive emergency symptoms. He would like to be on medications. He had blood work outpatient today normal renal function. White count of 30 however we discussion he did get the booster shots with his chemo. He was told about this white count from oncology. Prescription of valsartan sent to his pharmacy to start taking daily. He will keep blood pressure log in the morning when he wakes up and at night. Follow-up with PCP for adjustments as needed. All questions were answered. Re-evaluation: stable Disposition discussed with patient/family/significant other: Patient Case discussed with consulting clinician: N/A This note was generated with [employer] dictation software. It may contain incorrect words, spelling, and punctuation that were not noted in checking the note before signing. Discharge Plan Triage Chief Complaint: Hypertension ED Provider: Jordan Castaneda Dx/Rx/DC Orders Clinical Impression: Lung cancer, Hypertension Instructions: Hypertension Dc Prescriptions: New valsartan 80 mg tablet 80 mg PO DAILY Qty: 30 0RF No Action acetaminophen 325 mg capsule 650 mg PO Q4H PRN (Reason: Pain) albuterol sulfate 90 mcg/actuation HFA aerosol inhaler 1 puff inhalation Q4H PRN (Reason: shortness of breath or wheezing) lidocaine-prilocaine 2.5-2.5 % cream 1 applic topical ONCE PRN (Reason: port access) 30 Days Qty: 30 2RF Breztri Aerosphere 160-9-4.8 mcg/actuation HFA aerosol inhaler 2 inh inhalation BID Qty: 10.7 6RF albuterol sulfate 90 mcg/actuation HFA aerosol inhaler 2 puff inhalation Q4H PRN (Reason: shortness of breath or wheezing) Qty: 8.5 6RF Rx Instructions: administer with spacer ondansetron 8 mg tablet,disintegrating 8 mg PO Q8H PRN (Reason: nausea and vomiting) Qty: 30 2RF prochlorperazine maleate 10 mg tablet 10 mg PO Q6H PRN (Reason: nausea and vomiting) Qty: 30 2RF dexamethasone 4 mg tablet 8 mg PO .COMPLEX Qty: 6 3RF Rx Instructions: 8 mg orally ONLY on days 2, 3, and 4 of chemotherapy cycle; guaifenesin 600 mg tablet extended release 12hr 600 mg PO Q12H PRN naproxen sodium [Aleve] 220 mg tablet 220 mg PO BID PRN benzonatate 100 mg capsule 100 mg PO BID-TID PRN sennosides [senna] 8.6 mg tablet 8.6 mg PO DAILY PRN cholecalciferol (vitamin D3) 25 mcg (1,000 unit) capsule 25 mcg PO DAILY mecobalamin (vitamin B12) 500 mcg tablet,chewable PO ascorbate calcium (vitamin C) 500 mg tablet 500 mg PO DAILY Primary Care Provider: Raj Askew Referrals: Halko,Raj, DO [Primary Care Provider] - 1-2 Weeks Activity Restrictions/Additional Instructions: Take blood pressure medicine as prescribed. 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 Follow-up with your doctor for recheck and medication adjustments as needed. Disposition Disposition: Home, Self Care Discharge Date/Time: 03/06/23 12:57
== END 2023-03-06 12:57 | disposition home or self-care (01) ==
PROVIDERS: Emergency Provider Emergency Medicine; PCP Student in an Organized Health Care Education/Training Program; Visit Provider Emergency Medicine
DX: C34.32 Malignant neoplasm of lower lobe, left bronchus or lung (principal); I10 Essential (primary) hypertension; F12.90 Cannabis use, unspecified, uncomplicated; Z87.891 Personal history of nicotine dependence
CPT/HCPCS: 36591; 80048; 85025; 99282; A4216

== ENCOUNTER → 2023-05-09 | Outpatient (CLI) | payer MEDICARE, OTHER, SELFPAY ==
--- NOTE | 2023-05-09 08:06 | CT_ITS ---
STUDY: CT CHEST, ABDOMEN T PELVIS WITH CONTRAST REASON FOR EXAM: Male, 67 years old. Known non-small cell lung cancer RADIATION DOSAGE (If Supplied By Facility): CTDIvol = ( 8.26 ) mGy, DLP = ( 729.82 ) mGycm TECHNIQUE: Transaxial imaging was performed following intravenous administration of IV 100mL Isovue-370. Multiplanar coronal and sagittal images were reformatted. Individualized dose optimization techniques were used for this CT. COMPARISON: Recent CT chest from 11/05/2022 and prior PET studies FINDINGS: CHEST Thyroid gland is unremarkable. Right subclavian port tip in the distal SVC. Lung windows again demonstrate evidence of right pneumonectomy with postsurgical changes and fluid throughout the right hemithorax. There remains compensatory hypertrophy of the left lung and mediastinal shift from left to right. There is a stable fibrotic scar in the left upper lobe on axial image 32 unchanged from previous studies. Previously noted noncalcified nodules in the superior aspect of the left lower lobe are unchanged as well these are seen on axial image 44, both measure approximately 0.8 cm. There is no organized infiltrate or effusion, no new suspicious noncalcified mass or nodule There is evidence of soft tissue density within the distal trachea and right mainstem bronchus which may represent mucous, but aspirated food cannot be excluded. Normal heart and pericardium. There are calcified coronary vessels. No suspicious enlarged axillary or mediastinal lymphadenopathy. Normal unenhanced pulmonary arteries. Normal aorta arch and descending thoracic aorta. Normal osseous structures. ABDOMEN Normal liver. Normal gallbladder and extrahepatic biliary system. Normal spleen. Normal pancreas. Normal bilateral adrenal glands. Normal right kidney. Normal left kidney. Normal visualized stomach. Normal small intestine. Normal colon. The appendix is visualized and appears normal. Appendix seen on coronal reformatted image 43 There is diffuse atherosclerotic calcification of the abdominal aorta with elongation and tortuosity, but without a demonstrated aneurysm. Normal inferior vena cava. Normal retroperitoneum. Normal abdominal wall. Bony structures show degenerative change throughout the thoracic lumbar spine and pelvis. There is a stable lucency in the inferior endplate of L5, PELVIS Normal urinary bladder. There is no pelvic fluid. There is no pelvic lymphadenopathy or mass lesion. Normal visualized pelvic arteries. CT/CT Chest, Abd, Pel w/Contrast IMPRESSION: Previous right pneumonectomy with compensatory hypertrophy of the left lung. Stable noncalcified nodules in the left lower lobe, stable fibrotic scarring in the left apex. No change since the most recent PET/CT study No new suspicious adenopathy, or suspicious noncalcified mass or nodule No suspicious solid organ abnormality, although the PET study showed increased activity in the adrenal glands, there is no clearly demonstrated adrenal nodule or mass. No free intraperitoneal fluid, air, or suspicious adenopathy, normal appendix visualized Degenerative bony changes throughout the cervical thoracic and lumbar spine with a stable lucent defect in the inferior endplate of L5 Electronically Signed: Will Freitas MD at 9:43 EST ,
[2023-05-09] MEDS: 0.9% Saline Lock 10 ML Syringe IV (08:40)
== END | disposition home or self-care (01) ==
LOC: CT 08:05
PROVIDERS: PCP Student in an Organized Health Care Education/Training Program; Referring Provider Nurse Practitioner Family; Visit Provider Nurse Practitioner Family
DX: C34.90 Malignant neoplasm of unspecified part of unspecified bronchus or lung (principal); C78.02 Secondary malignant neoplasm of left lung
CPT/HCPCS: 71260; 74177; Q9967; A4216

== ENCOUNTER → 2023-05-27 | Outpatient (CLI) | payer MEDICARE, OTHER, SELFPAY ==
[2023-05-27 12:30] VITALS: PULSE 100; PULSE 101; PULSE 102; PULSE 95; PULSE 97; PULSE 99; O2SAT 100; O2SAT 98; O2SAT 99
--- OUTSIDE RECORDS SUMMARY | 2023-05-27 12:42 | XMS RPT_ITS | CCD ---
Author Name Unknown Address [address] [place] [address] Organization [facility] Care Team Providers Care Resizer Operator Name Role Phone AYLA TURCIOS DO Primary Care Physician ([id number] Ayla Turcios DO Primary Care Provider [phone] EMERY LAMB Attending Unavailable AYLA TURCIOS Primary Care Unavailable VAMSI BOWENS Attending JOSÉ MANUEL Cohen. Referring Unavailable AYLA TURCIOS Primary Care Unavailable VAMSI BOWENS Attending VAMSI Jj Referring Unava ilAYLA Bowling Primary Care Unavailable EMERY LAMB Attending Unavailable EMERY LAMB Referring Unavailable AYLA TURCIOS Primary Care Unavailable EMERY LAMB Admitting Unavailable EMERY ALMB Attending Unavailable AYLA TURCIOS Primary Care Unavailable EMERY LAMB Attending Unavailable AYLA TURCIOS Primary Care Unavailable Medications Current Medications Medication Drug Class(es) Dates Sig (Normalized) Sig (Original) acetaminophen 500 mg oral tablet (2 sources) Start: 11-09-2021 acetaminophen 500 mg oral tablet Dose : 1,000 mg = 2 tab(s), Oral, TID, PRN pain or fever, 0 Refill(s) Start Date: 11/09/21 Status: Ordered Completed/Discontinued Medications Medication Drug Class(es) Dates Sig (Normalized) Sig (Original) 2 ml fentaNYL 0.05 mg/ml injection (2 sources) Opioid Agonist Start: 12-12-2022 End: 12-12-2022 fentaNYL (Sublimaze) injection heparin sodium, porcine 100 unt/ml injectable solution (2 sources) Unfractionated Heparin, Anti-coagulant Start: 12-26-2022 End: 12-26-2022 take 100 [IU] intraluminal route every twelve hours heparin flush injection 100 Units 10 ml lidocaine hydrochloride 10 mg/ml injection (2 sources) Antiarrhythmic, Amide Local Anesthetic Start: 12-12-2022 End: 12-12-2022 lidocaine PF (Xylocaine) 1 % injection 2 ml midazolam 1 mg/ml injection (2 sources) Benzodiazepine Start: 12-12-2022 End: 12-12-2022 midazolam (Versed) injection 5 ml sodium chloride 9 mg/ml injection (5 sources) Start: 12-26-2022 End: 12-26-2022 sodium chloride 0.9% (NS) flush 10 mL Problems Problem Classification Problem Date Documented Date Episodic/Chronic Anxiety disorders (2 sources) Anxiety 12-29-2020 Chronic Cancer of bronchus; lung (7 sources) Primary adenocarcinoma of lung; Translations: [Adenocarcinoma of lung] Onset: 12-17-2022 11-21-2020 Chronic Chronic obstructive pulmonary disease and bronchiectasis (2 sources) Moderate chronic obstructive pulmonary disease 11-21-2020 Chronic Nutritional deficiencies (1 source) Cachexia 11-21-2020 Episodic Other lower respiratory disease (2 sources) H/O: pneumothorax 11-21-2020 Episodic Other lower respiratory disease (1 source) Multiple nodules of lung; Translations: [Other nonspecific abnormal finding of lung field] 12-24-2022 Episodic Other lower respiratory disease (8 sources) Lung field abnormal; Translations: [Other nonspecific abnormal finding of lung field] Onset: 12-20-2022 12-21-2022 Episodic Other lower respiratory disease (1 source) Other nonspecific abnormal finding of lung field; Translations: [Other nonspecific abnormal finding of lung field] Onset: 12-21-2022 Episodic Other skin disorders (2 sources) Pleura finding; Translations: [Localized swelling, mass and lump, trunk] 12-12-2022 Episodic Other skin disorders (2 sources) Localized swelling, mass and lump, trunk; Translations: [Localized swelling, mass and lump, trunk] Onset: 12-17-2022 Episodic Residual codes; unclassified (1 source) H/O: pneumonectomy; Translations: [Acquired absence of lung [part of]] 01-03-2023 Episodic Residual codes; unclassified (2 sources) Acquired absence of lung [part of]; Translations: [Acquired absence of lung (part of)] Onset: 12-17-2022 Episodic Screening and history of mental health and substance abuse codes (2 sources) Ex-smoker 11-21-2020 Episodic Results Test Name Value Interpretation Reference Range Facil ity Vital Signs Date Time Vital Sign Value Performing Clinician Faci lity 12-26-2022 15:45-0400 Body temperature 97.2 [degF] Emery Lamb MD Work Phone: [employer] [employer] 12-26-2022 15:45-0400 Heart rate 81 /min Emery Lamb MD Work Phone: [facility] [employer] 12-26-2022 15:45-0400 Respiratory rate 19 /min Emery Lamb MD Work Phone: [place] [employer] 12-26-2022 15:45-0400 SaO2% (BldA) [Mass fraction] 95 % Emery Lamb MD Work Phone: [facility] [employer] 12-26-2022 15:30-0400 Diastolic blood pressure 95 mm[Hg] Emery Lamb MD Work Phone: [facility] [employer] 12-26-2022 15:30-0400 Systolic blood pressure 150 mm[Hg] Emery Lamb MD Work Phone: [facility] [employer] 12-26-2022 12:01-0400 Body height 172.7 cm Emery Lamb MD Work Phone: [facility] [employer] 12-26-2022 12:01-0400 Body mass index (BMI) [Ratio] 20.98 kg/m2 Emery Lamb MD Work Phone: [facility] [employer] 12-26-2022 12:01-0400 Body weight 62.6 kg Emery Lamb MD Work Phone: [facility] [employer] 12-12-2022 12:55-0400 Body temperature 97.7 [degF] Vamsi Bowens DO Work Phone: [facility] [employer] 12-12-2022 12:55-0400 Diastolic blood pressure 83 mm[Hg] Vamsi Gallagher-Rach DO Work Phone: [facility] [employer] 12-12-2022 12:55-0400 Heart rate 66 /min Vamsi Bowens DO Work Phone: [facility] [employer] 12-12-2022 12:55-0400 Respiratory rate 18 /min Vamsi Bowens DO Work Phone: [facility] [employer] 12-12-2022 12:55-0400 SaO2% (BldA) [Mass fraction] 98 % Vamsi Bowens DO Work Phone: [facility] [employer] 12-12-2022 12:55-0400 Systolic blood pressure 140 mm[Hg] Vamsi Bowens DO Work Phone: [facility] [employer] 12-12-2022 09:01-0400 Body height 172.7 cm Vamsi Bowens DO Work Phone: [facility] [employer] 12-12-2022 09:01-0400 Body mass index (BMI) [Ratio] 20.98 kg/m2 Vamsi Bowens DO Work Phone: [facility] [employer] 12-12-2022 09:01-0400 Body weight 62.6 kg Vamsi Bowens DO Work Phone: [facility] [employer] Encounters Encounter Date Encounter Type Care Provider Facility Start: 01-09-2023 Telephone encounter Tigist Zheng [facility] [employer] [facility] Pulmonary and Sleep Medicine Procedures Date Procedure Procedure Detail Performing Clinician Start: 12-26-2022 End: 12-26-2022 Smr prim src gram/giemsa stain bct fungi/cell Emery Lamb MD Work Phone: Start: 12-26-2022 FL GUIDANCE OR USE O NLY - NON-RESULTABLE Emery Lamb MD Work Phone: Start: 12-12-2022 Biopsy pleura percut aneous needle Vamsi Bowens DO Work Phone: Start: 12-12-2022 Blood count complete automated Kunal Vizcarra MD Work Phone: Start: 12-07-2020 Mediastinoscopy GARCIA NI CHOLS [employer]CHIL[employer] ADMINISTRATOR Start: 10-17-2020 CT guided biopsy of right lung GARCIA PEDERSENOLS [employer] ADMINISTRATOR Start: [birth year]-1968 Appendectomy GARCIA JOYCE JADYN [employer]ARE ADMINISTRATOR Disorder of tendon o f right hand GARCIA RODARTE [employer]ILDCARE ADMINISTRATOR Plan of Treatment Date Care Activity Detail Author Start: 03-11-2029 DTaP/Tdap/Td Vaccines (3 - Td or Tdap) DTaP/Tdap/Td Vaccines (3 - Td or Tdap) [facility] Start: 01-01-2023 End: 01-01-2023 Telemedicine consultation with patient 01/01/2023 9:00 AM EDT Telemedicine [facility] Pulmonary and Sleep Medicine [address] [place] [id number] Emery Lamb MD [address] [place], [place] [id number] [facility] Pulmonary [facility] Sleep Medicine Start: 12-26-2022 End: 12-26-2022 Admission to same day surgery center 12/26/2022 12:00 PM EDT - 12/26/2022 2:00 PM EDT Surgery [facility] [address] [place] [id number] Eemry Lamb MD [address] [place], [place] [id number] ENB/EBUS WITH XRAY [58946 (CPT )] [facility] Immunizations Immunization Date Immunization Notes Care Provider Fa cili 01-09-2021 influenza, injectabl e, quadrivalent, preservative free; Translations: [Fluarix PF Quadrivalent ] GARCIA CAYDEN [employer]CHILDCARE ADMINISTRATOR [facility] 01-09-2021 influenza virus vaccine, unspecified formulation Vamsi Bowens DO Work Phone: [facility] 07-29-2021 SARS-CoV-2 (COVID-19 ) Ad26 vaccine, recombinant GARCIA RODARTE [employer]IC[employer]-CHILDCARE ADMINISTRATOR [facility] Payers Date Payer Category Payer Unknown [employer] [id number] 2022-Present [phone] [address] [address] [place] [address] Commercial [id number] 2022 Unknown [id number] 2022 Medicare MEDICARE MEDICAR E PART A AND B [id number] 2022-Present [address] [place] [address] Medicare [id number] 2022 Medicare [id number] Social History Date Type Detail Facility Start: 12-29-2020 End: 12-04-2022 Ex-smoker (finding) [facility] Clinical Notes 11-30-2022 to 02-22-2023 Telephone Encounter - Bianca Abad RCP - 02/22/2023 7:00 AM ESTTelephone Encounter - Bianca Abad RCP - 02/22/2023 7:00 AM ESTTelephone Encounter - Tigist Trujillo RN - 01/11/2023 1:55 PM EDT Note Date & Type Note Facility 02-22-2023 Telephone encounter Note PET CT completed on 01/22/23 at [facility]. Results scanned to media tab. Patient had follow up appt with Dr. Leon on 02/12/23 and Lara will proceed with post pneumonectomy chemo/immunotherapy. Office notes scanned to media tab. [facility] 02-22-[address] completed on 01/22/23 at [facility]. Results scanned to media tab. Patient had follow up appt with Dr. Leon on 02/12/23 and Lara will proceed with post pneumonectomy chemo/immunotherapy. Office notes scanned to media tab. Spoke with Mr Martínez after reviewing Dr. Leon notes from [place] 01/10/23. Pt will complete restaging PET 01/22/23 in [place] and fu to be determined at that point. Per pt he has follow with oncology a few days after PET scan. Additionally referral was placed to Rad Onc within their system as they can do SBRT if indicated post PET. Pt does not need consult with [facility] radiation oncology at this time as [place] is preferred location. He is appreciative of care and will plan to fu on tx per Dr. Leon's recommendations. Navigators will follow for staging and sign off. Forwarding to providers as FYI. Spoke with Mr. Martínez by phone today and discussed upcoming appt with Dr. Leon. He will see his oncologist in [place] on 01/10/23. Navigator will plan to call patient 01/11/23 and review appt/determine if patient needs assistance obtaining appt with rad-onc provider here at [facility]. He is appreciative of follow up and verbalized understanding of plan. Transportation is a barrier to care for patient and will be addressed as needed moving forward. documented in this encounter [facility] 01-11-2023 Telephone encounter Note Spoke with Mr Martínez after reviewing Dr. Leon notes from [place] 01/10/23. Pt will complete restaging PET 01/22/23 in [place] and fu to be determined at that point. Per pt he has follow with oncology a few days after PET scan. Additionally referral was placed to Rad Onc within their system as they can do SBRT if indicated post PET. Pt does not need consult with [facility] radiation oncology at this time as [place] is preferred location. He is appreciative of care and will plan to fu on tx per Dr. Leon's recommendations. Navigators will follow for staging and sign off. Forwarding to providers as FYI. [facility] 01-11-2023 Miscellaneous Notes Spoke with Mr Martínez after reviewing Dr. Leon notes from [place] 01/10/23. Pt will complete restaging PET 01/22/23 in [place] and fu to be determined at that point. Per pt he has follow with oncology a few days after PET scan. Additionally referral was placed to Rad Onc within their system as they can do SBRT if indicated post PET. Pt does not need consult with [facility] radiation oncology at this time as [place] is preferred location. He is appreciative of care and will plan to fu on tx per Dr. Leon's recommendations. Navigators will follow for staging and sign off. Forwarding to providers as FYI. Spoke with Mr. Martínez by phone today and discussed upcoming appt with Dr. Leon. He will see his oncologist in [place] on 01/10/23. Navigator will plan to call patient 01/11/23 and review appt/determine if patient needs assistance obtaining appt with rad-onc provider here at [facility]. He is appreciative of follow up and verbalized understanding of plan. Transportation is a barrier to care for patient and will be addressed as needed moving forward. documented in this encounter [facility] 01-09-2023 Telephone encounter Note Spoke with Mr. Martínez by phone today and discussed upcoming appt with Dr. Leon. He will see his oncologist in [place] on 01/10/23. Navigator will plan to call patient 01/11/23 and review appt/determine if patient needs assistance obtaining appt with rad-onc provider here at [facility]. He is appreciative of follow up and verbalized understanding of plan. Transportation is a barrier to care for patient and will be addressed as needed moving forward. [facility] 01-03-2023 Telephone encounter Note Care coordination OV note from 01/03 & 12/26/2022 Labs all faxed to Dr Turcios, (PCP @ [phone]) & Dr Leon @ [phone] Lamb [facility] 01-03-2023 Miscellaneous Notes Care coordination OV note from 01/03 & 12/26/2022 Labs all faxed to Dr Turcios, (PCP @ [phone]) & Dr Leon @ [phone] Lamb documented in this encounter [facility] 01-03-2023 History of Presen t illness Narrative Patient was identified and seen today via Telehealth by agreement and consent. I used the following Telehealth technology: Audio capability only. Total length of call 24 minutes. The patient was offered and advised video for a more comprehensive evaluation, but the patient declined or was unable to use video. Patient location: Patient Location: Home. This patient encounter is appropriate and reasonable under the circumstances: patient preference . The patient has been advised of the potential risks and limitations of this mode of treatment (including but not limited to the absence of in-person examination) and has agreed to be treated in a remote fashion in spite of them. Any and all of the patient's/patient's family's questions on this issue have been answered and I have made no promises or guarantees to the patient. The patient has also been advised to contact this office for worsening conditions or problems, and seek emergency medical treatment and/or call 911 if the patient deems either necessary. The patient stated that they are currently in the [facility]. If the patient is a minor, permission has been obtained by the parent or guardian for the patient to receive medical care at this visit. Chief Complaint: Chief Complaint Patient presents with Lung Cancer History of Present Illness: HPI Follow up after EBUS and navigational bronchoscopy to evaluate 2 left sided pulmonary nodules. He had a prior pneumonectomy for lung cancer. Pre-treatment PET demonstrated these nodules, although they were below PET resolution at that time and have enlarged in the interim. I reviewed his imaging and results with him today. Sampling of the LLL nodule definitively showed pulmonary adenocarcinoma and sampling of the smaller STAN nodule showed highly suspicious cells with similar appearance. Mediastinal/hilar lymph node sampling was negative. He lives in [place] and follows with oncology there. Past Medical History: Past Medical History: Diagnosis Date Lung cancer (HCC) Social History: Social History Socioeconomic History Marital status: Single Tobacco Use Smoking status: Former Packs/day: 1.5 Types: Cigarettes Start date: 1974 Quit date: 2020 Years since quittin.7 Smokeless tobacco: Never Vaping Use Vaping Use: Never used Substance and Sexual Activity Alcohol use: Yes Alcohol/week: 4.0 standard drinks of alcohol Types: 4 Cans of beer per week Comment: 3 days/week Drug use: Never Family History: No family history on file. ROS: Review of Systems Respiratory: Positive for cough and shortness of breath. All other systems reviewed and are negative. Medications: Current Outpatient Medications Medication Sig Dispense Refill [id number] e (Midol Complete) 500-60-15 MG tablet tablet 1,000 mg. albuterol 108 (90 Base) MCG/ACT inhaler inhale 2 puffs by mouth and INTO THE LUNGS every 4 hours if needed for wheezing benzonatate (Tessalon) 100 MG capsule Take 100 mg by mouth 3 times daily as needed. Mucus Relief 600 MG 12 hr tablet take 1 tablet by mouth every 12 hours if needed for congestion No current facility-administered medications for this visit. Allergies: No Known Allergies Physical Exam: BP Temp Pulse Resp SpO2 Physical Exam telephonic visit. Assessment and Plan: 1. Adenocarcinoma of lung, unspecified laterality (HCC) Apparent metastatic vs multifocal primary lung adenocarcinoma. No overt evidence of additional metastatic disease. Discussed potential treatment options. Patient to follow up with oncology in [place]. SBRT given 2 focal lesions could potentially be an option. I did reach out and speak with our radiation oncologist and SBRT would be a consideration. Unclear if this is offered closer to his home. doweler to provide information and facilitate referral/appointment with radiation oncology if desired after discussion with his oncologist in [place]. Potentially would consider systemic therapy as well. 2. S/P pneumonectomy Given only 1 lung and now with respiratory symptoms, conventional radiation carries significant risk for additional lung injury/dysfunction. Follow-up: prn documented in this encounter [facility] 12-26-2022 Note DC instructions revi ewed with pt and friends, states understanding to all education given [facility] 12-26-2022 Note Patient: Lara Martínez Procedure Summary Date: 12/26/22 Room / Location: [facility] ENDO 7 / [facility] Gastroenterology Anesthesia Start: 1252 Anesthesia Stop: 1449 Procedures: ENB/EBUS WITH XRAY EBUS Diagnosis: Other nonspecific abnormal finding of lung field (Other nonspecific abnormal finding of lung field [R91.8]) Providers: Emery Lamb MD Responsible Provider: Alberto Hanson MD Anesthesia Type: general ASA Status: 3 Anesthesia Type: general Vitals Value Taken Time BP 111/72 12/26/22 1511 Temp 36.1 ?C (97 ?F) 12/26/22 1511 Pulse 77 12/26/22 1512 Resp 24 12/26/22 1512 SpO2 98 % 12/26/22 1512 Vitals shown include unvalidated device data. Anesthesia Post Evaluation Patient location during evaluation: PACU Patient participation: complete - patient participated Level of consciousness: awake and alert Pain management: satisfactory to patient Airway patency: patent Dental Injury: no Cardiovascular status: acceptable, blood pressure returned to baseline and hemodynamically stable Respiratory status: acceptable and spontaneous ventilation Hydration status: euvolemic Nausea/Vomiting: controlled No notable events documented. Patient can be discharged once all PACU criteria has been met. [facility] 12-26-2022 Note Patient: Lara Martínez Procedure Summary Date: 12/26/22 Room / Location: [facility] ENDO 7 / [facility] Gastroenterology Anesthesia Start: 1252 Anesthesia Stop: 1449 Procedures: ENB/EBUS WITH XRAY EBUS Diagnosis: Other nonspecific abnormal finding of lung field (Other nonspecific abnormal finding of lung field [R91.8]) Providers: Emery Lamb MD Responsible Provider: Alberto Hanson MD Anesthesia Type: general ASA Status: 3 Anesthesia Type: general Vitals Value Taken Time BP 111/72 12/26/22 1511 Temp 36.1 ?C (97 ?F) 12/26/22 1511 Pulse 77 12/26/22 1511 Resp 27 12/26/22 1511 SpO2 94 % 12/26/22 1511 Vitals shown include unvalidated device data. Anesthesia Post Evaluation Patient location during evaluation: PACU Patient participation: complete - patient participated Level of consciousness: awake and alert Pain management: satisfactory to patient Multimodal analgesia pain management approach Airway patency: patent Two or more strategies used to mitigate risk of obstructive sleep apnea Cardiovascular status: acceptable and hemodynamically stable Respiratory status: acceptable Hydration status: acceptable No notable events documented. MIPS #[id number] PONV Patient did not receive an inhalational anesthetic (XX430) MIPS # 424 Perioperative Temperature Management Anesthesia time was 60 minutes or longer (4255F) Anesthesai administered was General (inhalational or TIVA) or Neuraxial block (X0424) At least one body temperature greater than 95.8F/35.5C achieved within the 30 mins immediately prior to or the 15 minutes immediately following anesthesia end time (G9771) MIPS #477 Multimodal Pain Management Not emergent case Patient was administered multimodal pain management (two or more drugs and/or interventions excluding systemic opioids) in the periopeartive period occurring at some time between 6 hours prior to anesthesia start time until discharged from PACU (G2148) MIPS #404 Anesthesiology Smoking Abstinence The patient is not a current smoker (e.g. cigarette, cigar, pipe, e-cigarette/vaping/marijuana) If no stop here (G9644) I completed my handoff to the receiving clinician during which we: 1. Identified the patient 2. Identified the responsible provider 3. Reviewed the pertinent medical history 4. Discussed the surgical course 5. Reviewed intra-op anesthesia management and issues during anesthesia 6. Set expectations for post-procedure period 7. Allowed opportunity for questions and acknowledgement of understanding. [facility] 12-26-2022 Note Formatting of this n ote might be different from the original. Hala taking pt out at this time [facility] 12-26-2022 Miscellaneous Notes Hala taking pt out at this time Pt getting dressed at this time Pt alert and oriented, up with standby assist, states he is ready to go home Medication brought to pt by resident, samples to try DC instructions reviewed with pt and friends, states understanding to all education given Called for pt friends to come to the room Pt sitting up in bed, taking sips of water at this [facility] Name: Lara [facility] Procedure Date: 12/26/2022 1:01 PM Gender: Male Date of : 1955 Age: 67 Admit Type: Outpatient Note Status: Finalized Attending MD: Emery Lamb MD, [id number] Procedure: Bronchoscopy Indications: Left upper lobe nodule, Left lower lobe nodule Findings: Right Lung Abnormalities: Evidence of previous surgery was found in the right mainstem bronchus. The bronchial stump is well healed. Electromagnetic navigation bronchoscopy utilizing the [employer] system with iLog[employer] upgrade was performed. The CT scan was used for planning purposes. A virtual bronchoscopic image was generated using the planning software. The targets in the left upper lobe and in the left lower lobe were marked. A nodule 1 cm in size was found and a pathway was created. After a complete airway exam, the locatable guide/extended working channel was inserted and an automatic registration was performed. The navigation phase was then begun to locate the target lesion(s). Positioning was confirmed using fluoroscopy. The locatable guide was removed from the extended working channel. Transbronchial needle aspirations of a nodule were performed in the left upper lobe and in the left lower lobe using a fine needle and sent for routine cytology. The procedure was guided by fluoroscopy. Transbronchial needle aspiration technique was selected because the sampling site was not visible endoscopically. Two samples were obtained. Transbronchial biopsies of a nodule were performed in the left upper lobe and in the left lower lobe using forceps and sent for histopathology examination. The procedure was guided by fluoroscopy. Transbronchial biopsy technique was selected because the sampling site was not visible endoscopically. Twelve biopsy passes were performed. Two biopsy samples were obtained. Fluoroscopy guided transbronchial brushings of a nodule were obtained in the left lower lobe with a cytology brush and sent for routine cytology. One sample was obtained. Transbronchial brushing technique was selected because the sampling site was not visible endoscopically. The bronchoscope was advanced until wedged at the desired location for bronchoalveolar lavage. BAL was performed in the left upper lobe and in the left lower lobe of the lung and sent for routine cytology and bacterial, AFB and fungal analysis. 160 mL of fluid were instilled. 70 mL were returned. The return was blood-tinged and cellular. There were no mucoid plugs in the return fluid. Multiple specimens were obtained, and each sent for analysis. An endobronchial ultrasound endoscope was utilized in order to assist with fine needle aspiration in the right paratracheal area, in the left paratracheal area, in the subcarinal area and in the left hilum. Transbronchial needle aspirations were performed in the left paratracheal area and in the subcarinal area using a [employer] Expect 25 gauge needle and sent for routine cytology. The procedure was guided by ultrasound. The sampling device penetrated the full thickness of the bronchial wall in order to reach the sampling site. Two samples were obtained. Impression: - Left upper lobe nodule - Left lower lobe nodule - Evidence of previous surgery was found in the right mainstem bronchus. - Electromagnetic navigation bronchoscopy was performed. - A transbronchial needle aspiration was performed. - Transbronchial lung biopsies were performed. - Transbronchial brushings were obtained. - Bronchoalveolar lavage was performed. - Endobronchial ultrasound was performed. - A transbronchial needle aspiration was performed. Recommendation: - Await BAL, biopsy, brushing, culture and cytology results. - Chest X-ray post-procedure. Medicines: General Anesthesia Procedure: Pre-Anesthesia Assessment: - A History and Physical has been performed. The patient's medications, allergies and sensitivities have been reviewed. - ASA Grade Assessment: III - A patient with severe systemic disease. - The anesthesia plan was to use general anesthesia. After I obtained informed consent, the scope was passed under direct vision. Throughout the procedure, the patient's blood pressure, pulse, and oxygen saturations were monitored continuously. The Bronchoscope was introduced through the mouth, via the endotracheal tube (the patient was intubated for the procedure) and advanced to the tracheobronchial tree of both lungs. The Bronchoscope was introduced through the mouth, via the endotracheal tube (the patient was intubated for the procedure) and advanced to the tracheobronchial tree of both lungs. The procedure was unusually difficult due to post-surgical anatomy. The patient tolerated the procedure well. Complications: No immediate complications. Estimated blood loss: Minimal Procedure Code(s): --- Professional --- 61664, Bronchoscopy, rigid or flexible, including fluoroscopic guidance, when performed; with transbronchial needle aspiration biopsy(s), trachea, main stem and/or lobar bronchus(i) 86715, Bronchoscopy, rigid or flexible, including fluoroscopic guidance, when performed; with transbronchial lung biopsy(s), single lobe 72983, Bronchoscopy, rigid or flexible, including fluoroscopic guidance, when performed; with bronchial alveolar lavage 98815, Bronchoscopy, rigid or flexible, including fluoroscopic guidance, when performed; with brushing or protected brushings 43199, Bronchoscopy, rigid or flexible, including fluoroscopic guidance, when performed; with computer-assisted, image-guided navigation (List separately in addition to code for primary procedure[s]) 88644, Bronchoscopy, rigid or flexible, including fluoroscopic guidance, when performed; with transendoscopic endobronchial ultrasound (EBUS) during bronchoscopic diagnostic or therapeutic intervention(s) for peripheral lesion(s) (List separately in addition to code for primary procedure[s]) 71090, Bronchoscopy, rigid or flexible, including fluoroscopic guidance, when performed; with transbronchial needle aspiration biopsy(s), each additional lobe (List separately in addition to code for primary procedure) 36505, Bronchoscopy, rigid or flexible, including fluoroscopic guidance, when performed; with transbronchial lung biopsy(s), each additional lobe (List separately in addition to code for primary procedure) Diagnosis Code(s): --- Professional --- R91.1, Solitary pulmonary nodule Z98.890, Other specified postprocedural states CPT copyright 2021 [employer]. All rights reserved. The codes documented in this report are preliminary and upon family law mediator review may be revised to meet current compliance requirements. Attending Participation: I personally performed the entire procedure. Emery Lamb MD 12/26/2022 2:52:21 PM This report has been signed electronically. Number of Addenda: 0 Note Initiated On: 12/26/2022 1:01 PM documented in this encounter [facility] 12-26-2022 Note Formatting of this n ote might be different from the original. Pt getting dressed at this time [facility] 12-26-2022 Note Formatting of this n ote might be different from the original. Pt alert and oriented, up with standby assist, states he is ready to go home [facility] 12-26-2022 Note Formatting of this n ote might be different from the original. Medication brought to pt by resident, samples to try [facility] 12-26-2022 Note Formatting of this n ote might be different from the original. DC instructions reviewed with pt and friends, states understanding to all education given [facility] 12-26-2022 Note Formatting of this n ote might be different from the original. Called for pt friends to come to the room T [facility] 12-26-2022 Note Formatting of this n ote might be different from the original. Pt sitting up in bed, taking sips of water at this time [facility] 12-26-2022 Note Endoscopy Center[facility] Patient Name: Lara Martínez Procedure Date: 12/26/2022 1:01 PM Gender: Male Date of : 1955 Age: 67 Admit Type: Outpatient Note Status: Finalized Attending MD: Emery Lamb MD, [id number] Procedure: Bronchoscopy Indications: Left upper lobe nodule, Left lower lobe nodule Findings: Right Lung Abnormalities: Evidence of previous surgery was found in the right mainstem bronchus. The bronchial stump is well healed. Electromagnetic navigation bronchoscopy utilizing the [employer] system with [employer] upgrade was performed. The CT scan was used for planning purposes. A virtual bronchoscopic image was generated using the planning software. The targets in the left upper lobe and in the left lower lobe were marked. A nodule 1 cm in size was found and a pathway was created. After a complete airway exam, the locatable guide/extended working channel was inserted and an automatic registration was performed. The navigation phase was then begun to locate the target lesion(s). Positioning was confirmed using fluoroscopy. The locatable guide was removed from the extended working channel. Transbronchial needle aspirations of a nodule were performed in the left upper lobe and in the left lower lobe using a fine needle and sent for routine cytology. The procedure was guided by fluoroscopy. Transbronchial needle aspiration technique was selected because the sampling site was not visible endoscopically. Two samples were obtained. Transbronchial biopsies of a nodule were performed in the left upper lobe and in the left lower lobe using forceps and sent for histopathology examination. The procedure was guided by fluoroscopy. Transbronchial biopsy technique was selected because the sampling site was not visible endoscopically. Twelve biopsy passes were performed. Two biopsy samples were obtained. Fluoroscopy guided transbronchial brushings of a nodule were obtained in the left lower lobe with a cytology brush and sent for routine cytology. One sample was obtained. Transbronchial brushing technique was selected because the sampling site was not visible endoscopically. The bronchoscope was advanced until wedged at the desired location for bronchoalveolar lavage. BAL was performed in the left upper lobe and in the left lower lobe of the lung and sent for routine cytology and bacterial, AFB and fungal analysis. 160 mL of fluid were instilled. 70 mL were returned. The return was blood-tinged and cellular. There were no mucoid plugs in the return fluid. Multiple specimens were obtained, and each sent for analysis. An endobronchial ultrasound endoscope was utilized in order to assist with fine needle aspiration in the right paratracheal area, in the left paratracheal area, in the subcarinal area and in the left hilum. Transbronchial needle aspirations were performed in the left paratracheal area and in the subcarinal area using a [employer] Expect 25 gauge needle and sent for routine cytology. The procedure was guided by ultrasound. The sampling device penetrated the full thickness of the bronchial wall in order to reach the sampling site. Two samples were obtained. Impression: - Left upper lobe nodule - Left lower lobe nodule - Evidence of previous surgery was found in the right mainstem bronchus. - Electromagnetic navigation bronchoscopy was performed. - A transbronchial needle aspiration was performed. - Transbronchial lung biopsies were performed. - Transbronchial brushings were obtained. - Bronchoalveolar lavage was performed. - Endobronchial ultrasound was performed. - A transbronchial needle aspiration was performed. Recommendation: - Await BAL, biopsy, brushing, culture and cytology results. - Chest X-ray post-procedure. Medicines: General Anesthesia Procedure: Pre-Anesthesia Assessment: - A History and Physical has been performed. The patient's medications, allergies and sensitivities have been reviewed. - ASA Grade Assessment: III - A patient with severe systemic disease. - The anesthesia plan was to use general anesthesia. After I obtained informed consent, the scope was passed under direct vision. Throughout the procedure, the patient's blood pressure, pulse, and oxygen saturations were monitored continuously. The Bronchoscope was introduced through the mouth, via the endotracheal tube (the patient was intubated for the procedure) and advanced to the tracheobronchial tree of both lungs. The Bronchoscope was introduced through the mouth, via the endotracheal tube (the patient was intubated for the procedure) and advanced to the tracheobronchial tree of both lungs. The procedure was unusually difficult due to post-surgical anatomy. The patient tolerated the procedure well. Complications: No immediate complications. Estimated blood loss: Minimal Procedure (more content not included)... [facility] 12-26-2022 Note Chief Complaint: pul monary nodule(s) History of Present Illness: HPI 67 y/o male with history of stage IIIa lung cancer s/p right pneumonectomy and chemotherapy, here for navigational bronchoscopy to evaluate left sided pulmonary nodules. Past Medical History: Past Medical History: Diagnosis Date Lung cancer (HCC) Social History: Social History Socioeconomic History Marital status: Single Tobacco Use Smoking status: Former Packs/day: 1.50 Types: Cigarettes Start date: 1974 Quit date: 2020 Years since quittin.7 Smokeless tobacco: Never Vaping Use Vaping Use: Never used Substance and Sexual Activity Alcohol use: Yes Alcohol/week: 4.0 standard drinks of alcohol Types: 4 Cans of beer per week Comment: 3 days/week Drug use: Never Family History: No family history on file. ROS: Review of Systems Respiratory: Positive for cough and shortness of breath. All other systems reviewed and are negative. Medications: Current Facility-Administered Medications Medication Dose Route Frequency Provider Last Rate Last Admin heparin flush injection 100 Units 100 Units IntraCATHeter q12h Emery Lamb MD heparin flush injection 100 Units 100 Units IntraCATHeter PRN Emery Lamb MD sodium chloride 0.9 % infusion 5-250 mL/hr IntraVENous PRN Emery Lamb MD sodium chloride 0.9% (NS) flush 10 mL 10 mL IntraVENous 2 times per day Emery Lamb MD sodium chloride 0.9% (NS) flush 10 mL 10 mL IntraVENous PRN Emery Lamb MD sodium chloride 0.9% (NS) flush 10 mL 10 mL IntraCATHeter q12h Emery Lamb MD sodium chloride 0.9% (NS) flush 10 mL 10 mL IntraCATHeter PRMarce Lamb MD Allergies: No Known Allergies Physical Exam: BP (!) 189/96 (12/26/22 1201) Temp 36.7 ?C (98.1 ?F) (12/26/22 1201) Pulse 79 (12/26/22 1201) Resp 17 (12/26/22 1201) SpO2 99 % (12/26/22 1201) BP (!) 189/96 Pulse 79 Temp 36.7 ?C (98.1 ?F) (Temporal) Resp 17 Ht 5' 8 (1.727 m) Wt 138 lb (62.6 kg) SpO2 99% BMI 20.98 kg/m? Physical Exam Constitutional: General: He is not in acute distress. Appearance: He is ill-appearing (chronically). HENT: Mouth/Throat: Mouth: Mucous membranes are moist. Pharynx: Oropharynx is clear. Eyes: General: No scleral icterus. Conjunctiva/sclera: Conjunctivae normal. Cardiovascular: Rate and Rhythm: Normal rate and regular rhythm. Pulmonary: Effort: Pulmonary effort is normal. Skin: General: Skin is warm and dry. Neurological: General: No focal deficit present. Mental Status: He is alert and oriented to person, place, and time. Psychiatric: Mood and Affect: Mood normal. Behavior: Behavior normal. Thought Content: Thought content normal. Assessment and Plan: Left sided pulmonary nodules. Plan navigational bronchoscopy with sampling of left sided pulmonary nodule(s). EBUS for lymph node evaluation/sampling/staging. [facility] 12-26-2022 Note Patient: Lara Martínez Procedure Information Date/Time: 12/26/22 1200 Procedures: ENB/EBUS WITH XRAY - Patient has right chest medport, Rad, Path, ENB Rep, Total Time: 120 minutes EBUS Location: [facility] ENDO 7 / [facility] Gastroenterology Providers: Emery Lamb MD Relevant Problems No relevant active problems Past Medical History: Past Medical History: No date: Lung cancer (HCC) Past Surgical History: Past Surgical History: 12/12/2022: LUNG LOBECTOMY; Right Comment: whole right lung per pt No date: PLEURA BIOPSY Social History: TOBACCO: reports that he quit smoking about 2 years ago. His smoking use included cigarettes. He started smoking about 48 years ago. He smoked an average of 1.5 packs per day. He has never used smokeless tobacco. ETOH: reports current alcohol use of about 4.0 standard drinks of alcohol per week. Social History Substance and Sexual Activity Drug Use Never Family History: No family history on file. Screening: unknown Clinical information reviewed: Tobacco Allergies Meds Med Hx Surg Hx Fam Hx Soc Hx Physical Exam Airway Mallampati: II TM distance: >3 FB Neck ROM: full Mouth Open: normal Cardiovascular Dental dentition normal Pulmonary Abdominal Anesthesia Plan patient is NPO appropriate Any family history or previous problems with anesthesia no ASA 3 general Any family history or previous problems with anesthesia no The patient is not a current smoker. Anesthetic plan and risks discussed with patient. [facility] Screening Labs: Lab Results Component Value Date WBC 6.9 12/12/2022 HGB 13.3 12/12/2022 HCT 40.0 12/12/2022 MCV 91.6 12/12/2022 PLT 287 12/12/2022 No results found for: NA, K, CL, CO2, BUN, CREATININE, GLUCOSE, CALCIUM, PROT, BILIRUBINFL, ALKPHOS, AST, ALT, EGFR, GLOB No echocardiogram results found for the past 14 days No results found for this or any previous visit. [facility] 12-26-2022 Note Formatting of this n ote might be different from the original. [facility] Procedure Date: 12/26/2022 1:01 PM Gender: Male Date of : 1955 Age: 67 Admit Type: Outpatient Note Status: Finalized Attending MD: Emery Lamb MD, [id number] Procedure: Bronchoscopy Indications: Left upper lobe nodule, Left lower lobe nodule Findings: Right Lung Abnormalities: Evidence of previous surgery was found in the right mainstem bronchus. The bronchial stump is well healed. Electromagnetic navigation bronchoscopy utilizing the [employer] system with [employer] upgrade was performed. The CT scan was used for planning purposes. A virtual bronchoscopic image was generated using the planning software. The targets in the left upper lobe and in the left lower lobe were marked. A nodule 1 cm in size was found and a pathway was created. After a complete airway exam, the locatable guide/extended working channel was inserted and an automatic registration was performed. The navigation phase was then begun to locate the target lesion(s). Positioning was confirmed using fluoroscopy. The locatable guide was removed from the extended working channel. Transbronchial needle aspirations of a nodule were performed in the left upper lobe and in the left lower lobe using a fine needle and sent for routine cytology. The procedure was guided by fluoroscopy. Transbronchial needle aspiration technique was selected because the sampling site was not visible endoscopically. Two samples were obtained. Transbronchial biopsies of a nodule were performed in the left upper lobe and in the left lower lobe using forceps and sent for histopathology examination. The procedure was guided by fluoroscopy. Transbronchial biopsy technique was selected because the sampling site was not visible endoscopically. Twelve biopsy passes were performed. Two biopsy samples were obtained. Fluoroscopy guided transbronchial brushings of a nodule were obtained in the left lower lobe with a cytology brush and sent for routine cytology. One sample was obtained. Transbronchial brushing technique was selected because the sampling site was not visible endoscopically. The bronchoscope was advanced until wedged at the desired location for bronchoalveolar lavage. BAL was performed in the left upper lobe and in the left lower lobe of the lung and sent for routine cytology and bacterial, AFB and fungal analysis. 160 mL of fluid were instilled. 70 mL were returned. The return was blood-tinged and cellular. There were no mucoid plugs in the return fluid. Multiple specimens were obtained, and each sent for analysis. An endobronchial ultrasound endoscope was utilized in order to assist with fine needle aspiration in the right paratracheal area, in the left paratracheal area, in the subcarinal area and in the left hilum. Transbronchial needle aspirations were performed in the left paratracheal area and in the subcarinal area using a [employer] 25 gauge needle and sent for routine cytology. The procedure was guided by ultrasound. The sampling device penetrated the full thickness of the bronchial wall in order to reach the sampling site. Two samples were obtained. Impression: - Left upper lobe nodule - Left lower lobe nodule - Evidence of previous surgery was found in the right mainstem bronchus. - Electromagnetic navigation bronchoscopy was performed. - A transbronchial needle aspiration was performed. - Transbronchial lung biopsies were performed. - Transbronchial brushings were obtained. - Bronchoalveolar lavage was performed. - Endobronchial ultrasound was performed. - A transbronchial needle aspiration was performed. Recommendation: - Await BAL, biopsy, brushing, culture and cytology results. - Chest X-ray post-procedure. Medicines: General Anesthesia Procedure: Pre-Anesthesia Assessment: - A History and Physical has been performed. The patient's medications, allergies and sensitivities have been reviewed. - ASA Grade Assessment: III - A patient with severe systemic disease. - The anesthesia plan was to use general anesthesia. After I obtained informed consent, the scope was passed under direct vision. Throughout the procedure, the patient's blood pressure, pulse, and oxygen saturations were monitored continuously. The Bronchoscope was introduced through the mouth, via the endotracheal tube (the patient was intubated for the procedure) and advanced to the tracheobronchial tree of both lungs. The Bronchoscope was introduced through the mouth, via the endotracheal tube (the patient was intubated for the procedure) and advanced to the tracheobronchial tree of both lungs. The procedure was unusually difficult due to post-surgical anatomy. The patient tolerated the procedure well. Complications: No immediate complications. Estimated blood loss: Minimal Procedure Code(s): --- Professional --- 91089, Bronchoscopy, rigid or flexible, including fluoroscopic guidance, when performed; with transbronchial needle aspiration biopsy(s), trachea, main stem and/or lobar bronchus(i) 45516, Bronchoscopy, rigid or flexible, including fluoroscopic guidance, when performed; with transbronchial lung biopsy(s), single lobe 51178, Bronchoscopy, rigid or flexible, including fluoroscopic guidance, when performed; with bronchial alveolar lavage 70167, Bronchoscopy, rigid or flexible, including fluoroscopic guidance, when performed; with brushing or protected brushings 52986, Bronchoscopy, rigid or flexible, including fluoroscopic guidance, when performed; with computer-assisted, image-guided navigation (List separately in addition to code for primary procedure[s]) 81389, Bronchoscopy, rigid or flexible, including fluoroscopic guidance, when performed; with transendoscopic endobronchial ultrasound (EBUS) during bronchoscopic diagnostic or therapeutic intervention(s) for peripheral lesion(s) (List separately in addition to code for primary procedure[s]) 21725, Bronchoscopy, rigid or flexible, including fluoroscopic guidance, when performed; with transbronchial needle aspiration biopsy(s), each additional lobe (List separately in addition to code for primary procedure) 83778, Bronchoscopy, rigid or flexible, including fluoroscopic guidance, when performed; with transbronchial lung biopsy(s), each additional lobe (List separately in addition to code for primary procedure) Diagnosis Code(s): --- Professional --- R91.1, Solitary pulmonary nodule Z98.890, Other specified postprocedural states CPT copyright 2021 [employer]. All rights reserved. The codes documented in this report are preliminary and upon family law mediator review may be revised to meet current compliance requirements. Attending Participation: I personally performed the entire procedure. Emery Lamb MD 12/26/2022 2:52:21 PM This report has been signed electronically. Number of Addenda: 0 Note Initiated On: 12/26/2022 1:01 PM T [facility] 12-26-2022 History and physical note Chief Complaint: pulmonary nodule(s) History of Present Illness: HPI 67 y/o male with history of stage IIIa lung cancer s/p right pneumonectomy and chemotherapy, here for navigational bronchoscopy to evaluate left sided pulmonary nodules. Past Medical History: Past Medical History: Diagnosis Date Lung cancer (HCC) Social History: Social History Socioeconomic History Marital status: Single Tobacco Use Smoking status: Former Packs/day: 1.50 Types: Cigarettes Start date: 1974 Quit date: 2020 Years since quittin.7 Smokeless tobacco: Never Vaping Use Vaping Use: Never used Substance and Sexual Activity Alcohol use: Yes Alcohol/week: 4.0 standard drinks of alcohol Types: 4 Cans of beer per week Comment: 3 days/week Drug use: Never Family History: No family history on file. ROS: Review of Systems Respiratory: Positive for cough and shortness of breath. All other systems reviewed and are negative. Medications: Current Facility-Administered Medications Medication Dose Route Frequency Provider Last Rate Last Admin heparin flush injection 100 Units 100 Units IntraCATHeter q12h Emery Lamb MD heparin flush injection 100 Units 100 Units IntraCATHeter PRN Emery Lamb MD sodium chloride 0.9 % infusion 5-250 mL/hr IntraVENous PRN Emery Lamb MD sodium chloride 0.9% (NS) flush 10 mL 10 mL IntraVENous 2 times per day Emery Lamb MD sodium chloride 0.9% (NS) flush 10 mL 10 mL IntraVENous PRN Emery Lamb MD sodium chloride 0.9% (NS) flush 10 mL 10 mL IntraCATHeter q12h Emery Lamb MD sodium chloride 0.9% (NS) flush 10 mL 10 mL IntraCATHeter PRN Emery Lamb MD Allergies: No Known Allergies Physical Exam: BP (!) 189/96 (12/26/22 1201) Temp 36.7 C (98.1 F) (12/26/22 1201) Pulse 79 (12/26/22 1201) Resp 17 (12/26/22 1201) SpO2 99 % (12/26/22 1201) BP (!) 189/96 Pulse 79 Temp 36.7 C (98.1 F) (Temporal) Resp 17 Ht 5' 8 (1.727 m) Wt 138 lb (62.6 kg) SpO2 99% BMI 20.98 kg/m Physical Exam Constitutional: General: He is not in acute distress. Appearance: He is ill-appearing (chronically). HENT: Mouth/Throat: Mouth: Mucous membranes are moist. Pharynx: Oropharynx is clear. Eyes: General: No scleral icterus. Conjunctiva/sclera: Conjunctivae normal. Cardiovascular: Rate and Rhythm: Normal rate and regular rhythm. Pulmonary: Effort: Pulmonary effort is normal. Skin: General: Skin is warm and dry. Neurological: General: No focal deficit present. Mental Status: He is alert and oriented to person, place, and time. Psychiatric: Mood and Affect: Mood normal. Behavior: Behavior normal. Thought Content: Thought content normal. Assessment and Plan: Left sided pulmonary nodules. Plan navigational bronchoscopy with sampling of left sided pulmonary nodule(s). EBUS for lymph node evaluation/sampling/staging. [employer] Phone: 12-26-2022 History and physical note Chief Complaint: pulmonary nodule(s) History of Present Illness: HPI 67 y/o male with history of stage IIIa lung cancer s/p right pneumonectomy and chemotherapy, here for navigational bronchoscopy to evaluate left sided pulmonary nodules. Past Medical History: Past Medical History: Diagnosis Date Lung cancer (HCC) Social History: Social History Socioeconomic History Marital status: Single Tobacco Use Smoking status: Former Packs/day: 1.50 Types: Cigarettes Start date: 1974 Quit date: 2020 Years since quittin.7 Smokeless tobacco: Never Vaping Use Vaping Use: Never used Substance and Sexual Activity Alcohol use: Yes Alcohol/week: 4.0 standard drinks of alcohol Types: 4 Cans of beer per week Comment: 3 days/week Drug use: Never Family History: No family history on file. ROS: Review of Systems Respiratory: Positive for cough and shortness of breath. All other systems reviewed and are negative. Medications: Current Facility-Administered Medications Medication Dose Route Frequency Provider Last Rate Last Admin heparin flush injection 100 Units 100 Units IntraCATHeter q12h Emery Lamb MD heparin flush injection 100 Units 100 Units IntraCATHeter PRN Emery Lamb MD sodium chloride 0.9 % infusion 5-250 mL/hr IntraVENous PRN Emery Lamb MD sodium chloride 0.9% (NS) flush 10 mL 10 mL IntraVENous 2 times per day Emery Lamb MD sodium chloride 0.9% (NS) flush 10 mL 10 mL IntraVENous PRN Emery Lamb MD sodium chloride 0.9% (NS) flush 10 mL 10 mL IntraCATHeter q12h Emery Lamb MD sodium chloride 0.9% (NS) flush 10 mL 10 mL IntraCATHeter PRN Emery Lamb MD Allergies: No Known Allergies Physical Exam: BP (!) 189/96 (12/26/22 1201) Temp 36.7 C (98.1 F) (12/26/22 1201) Pulse 79 (12/26/22 1201) Resp 17 (12/26/22 1201) SpO2 99 % (12/26/22 1201) BP (!) 189/96 Pulse 79 Temp 36.7 C (98.1 F) (Temporal) Resp 17 Ht 5' 8 (1.727 m) Wt 138 lb (62.6 kg) SpO2 99% BMI 20.98 kg/m Physical Exam Constitutional: General: He is not in acute distress. Appearance: He is ill-appearing (chronically). HENT: Mouth/Throat: Mouth: Mucous membranes are moist. Pharynx: Oropharynx is clear. Eyes: General: No scleral icterus. Conjunctiva/sclera: Conjunctivae normal. Cardiovascular: Rate and Rhythm: Normal rate and regular rhythm. Pulmonary: Effort: Pulmonary effort is normal. Skin: General: Skin is warm and dry. Neurological: General: No focal deficit present. Mental Status: He is alert and oriented to person, place, and time. Psychiatric: Mood and Affect: Mood normal. Behavior: Behavior normal. Thought Content: Thought content normal. Assessment and Plan: Left sided pulmonary nodules. Plan navigational bronchoscopy with sampling of left sided pulmonary nodule(s). EBUS for lymph node evaluation/sampling/staging. documented in this encounter [facility] 12-20-2022 Note This RN received req uest to schedule patient for chest CT at [facility] and then EBUS/ENB at [facility]. Sent to referral coordinators for PA of chest CT before scheduling. [facility] 12-12-2022 Note Patient arrived to R adiology department from [facility] for CT lung nodule biopsy . Dr. Vizcarra in to discuss procedure with patient and informed consent obtained. Patient assisted to CT table and placed on monitor. testing lead applied, vital signs obtained and monitored throughout procedure. Core needle biopsies obtained. Specimens sent to lab. Bandaid applied to needle insertion site. Patient tolerated procedure well. Patient taken to [facility] via stretcher. [facility] 12-12-2022 Nurse Note Patient arrived to Radiology department from [facility] for CT lung nodule biopsy . Dr. Vizcarra in to discuss procedure with patient and informed consent obtained. Patient assisted to CT table and placed on monitor. testing lead applied, vital signs obtained and monitored throughout procedure. Core needle biopsies obtained. Specimens sent to lab. Bandaid applied to needle insertion site. Patient tolerated procedure well. Patient taken to [facility] via stretcher. [facility] 12-12-2022 Nurse Note Patient arrived to Radiology department from [facility] for CT lung nodule biopsy . Dr. Vizcarra in to discuss procedure with patient and informed consent obtained. Patient assisted to CT table and placed on monitor. testing lead applied, vital signs obtained and monitored throughout procedure. Core needle biopsies obtained. Specimens sent to lab. Bandaid applied to needle insertion site. Patient tolerated procedure well. Patient taken to [facility] via stretcher. documented in this encounter [facility] 12-12-2022 Note [facility] Comprehensive PreProcedure History and Physical Name: Lara Martínez : 1955 (Age-67 y.o.) Date of Service: Pt seen/examined on 12/12/2022 Chief Complaint: 67 y.o. male who we are asked to see/evaluate Lara Martínez for pre-procedure evaluation prior to CT GUIDED PLEURA PERCUTANEOUS BIOPSY. History Of Present Illness: HPI: Persistent cough Severity: Severe Duration: >one month Review of systems negative except for items below: History reviewed. No pertinent past medical history. There are no problems to display for this patient. No past surgical history on file. No family history on file. Medications: @DIAGMEDLIST@ Social history and Laboratory Data: No results found for: HGB, HCT, PLT, WBC, PROTIME, INR, APTT, NA, K, BUN, CREATININE, GLUCOSE Social History Tobacco Use Smoking Status Former Packs/day: 1.50 Types: Cigarettes Start date: 1974 Quit date: 2020 Years since quittin.6 Smokeless Tobacco Never Social History Substance and Sexual Activity Alcohol Use Yes Social History Substance and Sexual Activity Drug Use Never No results for input(s): GLUCOSE in the last 72 hours. No results found for this or any previous visit. BP (!) 178/99 Pulse 84 Temp 37 ?C (98.6 ?F) (Temporal) Resp 18 SpO2 99% Physical Examination: onstitutional: No apparent distress, well nourished, and in stable condition. Pt wearing a mask and I wore a mask. Cardiac: Regular rate and rhythm Abdomen: Soft and nonacute Pulmonary: Absent breath sounds right side, moderate crackles left side, insp and exp Neuro: Moves extremities X4 with no tremors HEENT: No gross cranial nerve defects and anicteric sclera Skin: Thoracotomy scar right side, well healed Vascular: Adequate perfusion of extremities with no cyanosis Psych: Alert and oriented x3 with appropriate affect Lymphatics: No swelling of arms/hands with no pedal edema Neck: FROM with no JVD Additional Notes:None After review of the medical history and physical assessment, medications, allergies, patient's current medical condition, and labs, this patient is at acceptable risk for the planned procedure at this facility. Electronically signed by: ALBERTO HANSON MD, MD Date: 12/12/2022 at 8:57 AM [facility] 12-12-2022 Hospital Discharg e instructions Megha Guzman RN - 12/12/2022 10:04 AM EDT For questions/concerns post procedure call [phone] between 8 am and 3 pm after these hours call [phone] and ask for the interventional radiologist on-call. The following attachments cannot be sent through Care Everywhere.Pleural Biopsy (Armenian)documented in this encounter [facility] 12-12-2022 History and physical note [facility] Comprehensive PreProcedure History and Physical Name: Lara Martínez : 1955 (Age-67 y.o.) Date of Service: Pt seen/examined on 12/12/2022 Chief Complaint: 67 y.o. male who we are asked to see/evaluate Lara Martínez for pre-procedure evaluation prior to CT GUIDED PLEURA PERCUTANEOUS BIOPSY. History Of Present Illness: HPI: Persistent cough Severity: Severe Duration: >one month Review of systems negative except for items below: History reviewed. No pertinent past medical history. There are no problems to display for this patient. No past surgical history on file. No family history on file. Medications: @DIAGMEDLIST@ Social history and Laboratory Data: No results found for: HGB, HCT, PLT, WBC, PROTIME, INR, APTT, NA, K, BUN, CREATININE, GLUCOSE Social History Tobacco Use Smoking Status Former Packs/day: 1.50 Types: Cigarettes Start date: 1974 Quit date: 2020 Years since quittin.6 Smokeless Tobacco Never Social History Substance and Sexual Activity Alcohol Use Yes Social History Substance and Sexual Activity Drug Use Never No results for input(s): GLUCOSE in the last 72 hours. No results found for this or any previous visit. BP (!) 178/99 Pulse 84 Temp 37 C (98.6 F) (Temporal) Resp 18 SpO2 99% Physical Examination: onstitutional: No apparent distress, well nourished, and in stable condition. Pt wearing a mask and I wore a mask. Cardiac: Regular rate and rhythm Abdomen: Soft and nonacute Pulmonary: Absent breath sounds right side, moderate crackles left side, insp and exp Neuro: Moves extremities X4 with no tremors HEENT: No gross cranial nerve defects and anicteric sclera Skin: Thoracotomy scar right side, well healed Vascular: Adequate perfusion of extremities with no cyanosis Psych: Alert and oriented x3 with appropriate affect Lymphatics: No swelling of arms/hands with no pedal edema Neck: FROM with no JVD Additional Notes:None After review of the medical history and physical assessment, medications, allergies, patient's current medical condition, and labs, this patient is at acceptable risk for the planned procedure at this facility. Electronically signed by: ALBERTO HANSON MD, MD Date: 12/12/2022 at 8:57 AM [employer] Work Phone: 12-12-2022 History and physical note [employer] Comprehensive PreProcedure History and Physical Name: Lara Martínez : 1955 (Age-67 y.o.) Date of Service: Pt seen/examined on 12/12/2022 Chief Complaint: 67 y.o. male who we are asked to see/evaluate Lara Martínez for pre-procedure evaluation prior to CT GUIDED PLEURA PERCUTANEOUS BIOPSY. History Of Present Illness: HPI: Persistent cough Severity: Severe Duration: >one month Review of systems negative except for items below: History reviewed. No pertinent past medical history. There are no problems to display for this patient. No past surgical history on file. No family history on file. Medications: @DIAGMEDLIST@ Social history and Laboratory Data: No results found for: HGB, HCT, PLT, WBC, PROTIME, INR, APTT, NA, K, BUN, CREATININE, GLUCOSE Social History Tobacco Use Smoking Status Former Packs/day: 1.50 Types: Cigarettes Start date: 1974 Quit date: 2020 Years since quittin.6 Smokeless Tobacco Never Social History Substance and Sexual Activity Alcohol Use Yes Social History Substance and Sexual Activity Drug Use Never No results for input(s): GLUCOSE in the last 72 hours. No results found for this or any previous visit. BP (!) 178/99 Pulse 84 Temp 37 C (98.6 F) (Temporal) Resp 18 SpO2 99% Physical Examination: onstitutional: No apparent distress, well nourished, and in stable condition. Pt wearing a mask and I wore a mask. Cardiac: Regular rate and rhythm Abdomen: Soft and nonacute Pulmonary: Absent breath sounds right side, moderate crackles left side, insp and exp Neuro: Moves extremities X4 with no tremors HEENT: No gross cranial nerve defects and anicteric sclera Skin: Thoracotomy scar right side, well healed Vascular: Adequate perfusion of extremities with no cyanosis Psych: Alert and oriented x3 with appropriate affect Lymphatics: No swelling of arms/hands with no pedal edema Neck: FROM with no JVD Additional Notes:None After review of the medical history and physical assessment, medications, allergies, patient's current medical condition, and labs, this patient is at acceptable risk for the planned procedure at this facility. Electronically signed by: ALBERTO HANSON MD, MD Date: 12/12/2022 at 8:57 AM documented in this encounter [facility] 12-12-2022 Miscellaneous Notes Disch inst to pt & family, both verbalize understanding, disch to home via w/c to family in waiting vehicle with valuables documented in this encounter [facility] 12-12-2022 Note Formatting of this n ote might be different from the original. Disch inst to pt & family, both verbalize understanding, disch to home via w/c to family in waiting vehicle with valuables [facility] 12-12-2022 Note Formatting of this n ote might be different from the original. Disch inst to pt & family, both verbalize understanding, disch to home via w/c to family in waiting vehicle with valuables [facility] 12-06-2022 Telephone encounter Note Spoke with Mr. Martínez by phone. Reviewed appointment for CT pleural biopsy with Dr. Kunal Vizcarra 12/12/2022 at 8 AM at [facility]. Patient will arrive by 6:30 AM, have a responsible auto carrier driver, n.p.o. after midnight, clear liquids through 6 AM. He is not on any blood thinners. Patient voiced multiple concerns regarding prior CT biopsy attempts at [facility]. Patient reports feeling short of breath when laying prone. Navigator encouraged patient to discuss with RN in special procedures at time of his biopsy at [facility]. Attempted to provide emotional support. Arranged phone appointment for results with Dr. Emery Lamb 12/18/[address] Elliott Loyd is out of office. Patient has navigator contact information will call if he has additional questions. [facility] 12-06-2022 Miscellaneous Notes Spoke with Mr. Martínez by phone. Reviewed appointment for CT pleural biopsy with Dr. Kunal Vizcarra 12/12/2022 at 8 AM at [facility]. Patient will arrive by 6:30 AM, have a responsible auto carrier driver, n.p.o. after midnight, clear liquids through 6 AM. He is not on any blood thinners. Patient voiced multiple concerns regarding prior CT biopsy attempts at [facility]. Patient reports feeling short of breath when laying prone. Navigator encouraged patient to discuss with RN in special procedures at time of his biopsy at [facility]. Attempted to provide emotional support. Arranged phone appointment for results with Dr. Emery Lamb 12/18/[address] Elliott Loyd is out of office. Patient has navigator contact information will call if he has additional questions. Navigator received message from Dr. Bowens to assist with scheduling CT biopsy of pleural-based nodule after visit 12-04-2022. Patient has issues with transportation and will need to coordinate with a friend to take him to any scheduled appointment. He prefers [facility] for his biopsy. States he would like scheduled for first available date and time and will contact friend for transportation once this is scheduled. If this does not work he will plan to return phone call. Navigator to reach out to RN coordinator of [facility] interventional radiology for next available scheduling and return call to patient with details. Patient aware that scheduling details may not be available today and navigators will reach out once received. Lm for Steph to review patient and return call to navigators to schedule. documented in this encounter [facility] 12-05-2022 Telephone encounter Note Navigator received message from Dr. Bowens to assist with scheduling CT biopsy of pleural-based nodule after visit 12-04-2022. Patient has issues with transportation and will need to coordinate with a friend to take him to any scheduled appointment. He prefers [facility] for his biopsy. States he would like scheduled for first available date and time and will contact friend for transportation once this is scheduled. If this does not work he will plan to return phone call. Navigator to reach out to RN coordinator of [facility] interventional radiology for next available scheduling and return call to patient with details. Patient aware that scheduling details may not be available today and navigators will reach out once received. Lm kamala Choi to review patient and return call to navigators to schedule. [facility] 12-03-2022 Telephone encounter Note Outside images now loaded to PACS for review. [facility] 12-03-2022 Miscellaneous Notes Outside images now loaded to PACS for review. Patient scheduled with [facility] on 12/04/22 Navigator requested electronic push of all prior CT chest imaging from [facility]. Obtained prior surgical notes from Dr. Bradshaw and all prior CT chest imaging reports scanned to media tab. Patient scheduled to see Dr. Vamsi Bowens 12/04/2022. Awaiting pt's call back to schedule. 12/07/22 appointment with JOSE M is no longer available. Next available is 12/11 [facility]. Reviewed EMR and navigator will obtain outside images from [facility] for review at upcoming lung nodule clinic appointment. We will also obtain outside medical oncology appointment notes for review. Radha, please schedule with Dr. SALGUERO 12/07/22 and Navigator will obtain records. Thanks! LVM for patient to call [phone] option to schedule INTERVENTIONAL PHYSICIAN appointment. Referral in chart. Opening on 12/07/[address] Elliott Loyd. Is this soon enough? Please advise. documented in this encounter [facility] 11-30-2022 Telephone encounter Note Patient scheduled with [facility] on 12/04/22 [facility] 11-30-2022 Miscellaneous Notes Patient scheduled with [facility] on 12/04/22 Navigator requested electronic push of all prior CT chest imaging from [facility]. Obtained prior surgical notes from Dr. Bradshaw and all prior CT chest imaging reports scanned to media tab. Patient scheduled to see Dr. Vamsi Bowens 12/04/2022. Awaiting pt's call back to schedule. 12/07/22 appointment with JOSE M is no longer available. Next available is 12/11 [facility]. Reviewed EMR and navigator will obtain outside images from [facility] for review at upcoming lung nodule clinic appointment. We will also obtain outside medical oncology appointment notes for review. Radha, please schedule with Dr. SALGUERO 12/07/22 and Navigator will obtain records. Thanks! LVM for patient to call [phone] option to schedule INTERVENTIONAL PHYSICIAN appointment. Referral in chart. Opening on 12/07/[address] Elliott Loyd. Is this soon enough? Please advise. documented in this encounter [facility] 11-30-2022 Telephone encounter Note Navigator requested electronic push of all prior CT chest imaging from [facility]. Obtained prior surgical notes from Dr. Bradshaw and all prior CT chest imaging reports scanned to media tab. Patient scheduled to see Dr. Vamsi Bowens 12/04/2022. [facility] 11-30-2022 Note LVM for patient to c all [phone] option to schedule INTERVENTIONAL PHYSICIAN appointment. Referral in chart. Opening on 12/07/[address] Elliott Loyd. Is this soon enough? Please advise. [facility] 11-30-2022 Telephone encounter Note Awaiting pt's call back to schedule. 12/07/22 appointment with JOSE M is no longer available. Next available is 12/11 [facility]. [facility] 11-30-2022 Telephone encounter Note Reviewed EMR and navigator will obtain outside images from [facility] for review at upcoming lung nodule clinic appointment. We will also obtain outside medical oncology appointment notes for review. Radha, please schedule with Dr. SALGUERO 12/07/22 and Navigator will obtain records. Thanks! [facility] 11-30-2022 Telephone encounter Note LVM for patient to call [phone] option to schedule INTERVENTIONAL PHYSICIAN appointment. Referral in chart. Opening on 12/07/[address] Elliott Loyd. Is this soon enough? Please advise. [facility] Evaluation + Plan note Future Appointments Appointment Date:01/25/2021 08:00:00 AM Scheduled Provider:AYLA TURCIOS DO Location:[facility] Appointment Type:PC OV Post Op Appointment Date:02/21/2021 10:00:00 AM Scheduled Provider:AYLA TURCIOS DO Location:[facility] Appointment Type:PC OV [facility] Evaluation + Plan note Future Appointments Appointment Date:12/18/2021 01:30:00 PM Scheduled Provider:AYLA TURCIOS DO [facility] Type:PC Wellness Annual [facility] Diagnosis Other nonspecific abnormal finding of lung field- Primary Pulmonary nodules Other diseases of lung, not elsewhere classified Other nonspecific abnormal finding of lung field [facility] Diagnosis Other nonspecific abnormal finding of lung field- Primary [facility] Diagnosis Adenocarcinoma of lung, unspecified laterality (HCC)- Primary S/P pneumonectomy Acquired absence of organ, lung documented in this encounter [facility] course Narrative No data available for this section [facility] Hospital Discharge instructions No data available for this section [facility] Hospital Discharge instructions* Attachments The following attachments cannot be sent through Care Everywhere. 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 Living Will Documentation 12/26/2022 3:48 PM Latest Code Status on File Code Status Date Activated Date Inactivated Comments Full Code 12/26/2022 11:49 AM 12/26/2022 6:05 PM Documents on File Type Date Recorded 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 [place] [address] Referral ID Status Reason Start Date Expiration Date Visits Re quested Visits Authorized [id number] Closed 12/18/2022 06/16/2023 1 1 Specialty Diagnoses / Procedures Referred By Contac t Referred To Contact Radiology Diagnoses Pleural nodule Procedures CT guided pleura percutaneous Vamsi Bowens DO [address] [place] [address] Referral ID Status Reason Start Date Expiration Date Visits Re quested Visits Authorized [id number] Closed 12/04/2022 06/02/2023 1 1 Additional Source Comments Care Team (unrecognized sect ion and content) Care Team Personnel Name: ALCON BARRIOS MD Position: P4 Physician - Cardiothoracic Surgery Med Service: Active Provider Member Role: Cardiothoracic Surgeon Address: Address: [address] [place] [address] A2-KRISTOPHER [address] [facility] Cardiothoracic Surgery [address] Name: AYLA TURCIOS DO Position: P4 Physician - Primary Care Med Service: Active Provider Member Role: Primary Care Physician Address: Address: [address] [place] [address]- [place] Name: HERNANDEZ LESLIE MD Position: P3 Physician - Senior Teradata Developer Med Service: Active Provider Member Role: Finisher Polisher Address: Address: [address] [place] [address] [address] [facility] [address] Name: BRI JONES MD Position: P4 Oncology Provider Med Service: AMB HEM/ONC Member Role: Oncologist Address: Address: [address] [place] [address] Hematology & Oncology [address] Care Team Related Persons Name: OLIVIER HARO (unrecognized sect ion and content) No Status Records FoundNo Status Records Found INFORMATION SOURCE (unrecogn ized section and content) DATE CREATED AUTHOR AUTHOR'S ORGANIZ ATION 02/24/2023 [facility] Reason for Visit (unrecogniz ed section and content) Reason Onset Date Comments Care Coordination 12/05/2022 CT pleural bx scheduling Specialty Diagnoses / Procedures Referred By Contac t Referred To Contact Radiology Diagnoses Pleural nodule Procedures CT guided pleura percutaneous Vamsi Bowens DO [address] [place] [address] Referral ID Status Reason Start Date Expiration Date Visits Re quested Visits Authorized [id number] Closed 12/04/2022 06/02/2023 1 1 Specialty Diagnoses / Procedures Referred By Contac t Referred To Contact Radiology Diagnoses Pulmonary nodules Procedures CT chest wo IV contrast Emery Lamb MD [address] [place] [address] Referral ID Status Reason Start Date Expiration Date Visits Re quested Visits Authorized [id number] Closed 12/18/2022 06/16/2023 1 1 Specialty Diagnoses / Procedures Referred By Cira montalvo Referred To Contact Diagnoses Other nonspecific abnormal finding of lung field Other nonspecific abnormal finding of lung field [R91.8] Procedures OR BRONCHOSCOPY W/CPTR-ASST IMAGE-GUIDED NAVIGATION OR BRNSCHSC TNDSC EBUS DX/TX INTERVENTION PERPH LES ENB/EBUS WITH XRAY EBUS Emery Lamb MD [address] [place] [id number] [facility] [address] [place] [address] Referral ID Status Reason Start Date Expiration Date Visits Re quested Visits Authorized [id number] 1 1 Reason Comments Lung Cancer Reason Onset Date Comments Care Coordination 01/03/2023 Reason Onset Date Comments Care Coordination 01/09/2023 Care Teams (unrecognized sec tion and content) Resizer Operator Relationship Specialty Start Date End Date Ayla Turcios DO [address] [place] [address] PCP - General Family Medicine 11/30/22 Resizer Operator Relationship Specialty Start Date End Date Ayla Turcios DO [address] [place] [address] PCP - General Family Medicine 11/30/22 Resizer Operator Relationship Specialty Start Date End Date Ayla Turcios DO [address] [place] [address] PCP - General Family Medicine 11/30/22 Resizer Operator Relationship Specialty Start Date End Date Ayla Turcios DO [address] [place] [address] PCP - General Family Medicine 11/30/22 Resizer Operator Relationship Specialty Start Date End Date Ayla Turcios DO [address] [place] [address] PCP - General Family Medicine 11/30/22 Resizer Operator Relationship Specialty Start Date End Date Ayla Turcios DO [address] [place] [address] PCP - General Family Medicine 11/30/22 Resizer Operator Relationship Specialty Start Date End Date Ayla Turcios DO [address] [place] [address] PCP - General Family Medicine 11/30/22 Resizer Operator Relationship Specialty Start Date End Date Ayla Turcios DO [address] [place] [address] PCP - General Family Medicine 11/30/22 Resizer Operator Relationship Specialty Start Date End Date Ayla Turcios DO [address] [place] [address] PCP - General Family Medicine 11/30/22 Scheduled Active and Recently Administ ered Medications (unrecognized section and content) PRN Medication Order 12/24/2022 12/25/2022 12/26/2022 heparin flush injection 100 Units 100 Units, IntraCATHeter, PRN, line care, after infusions or after blood draws, Starting on Sat12/26/22 at 1218, Use 10 mL or larger syringe. sodium chloride 0.9 % infusion 5-250 mL/hr, IntraVENous, PRN, if patient receiving piggyback infusions and maintenance fluids are not ordered OR KVO fluids to protect IV site / prevent frequent line interruptions/ long duration, Starting on Sat12/26/22 at 1149, Preprocedure, For piggyback infusion, administer at same rate as piggyback for a total of 25 mL. Enter 25 mL into dose field and piggyback rate into rate field of order. If piggyback is infusing at a rate less than 100 mL/hr, enter 25 mL into dose field and 100 mL/hr into rate field of order. For KVO fluids, enter rate of 20 mL/hr or less into rate field of order. 1252 (New Bag - Prov ider: José Manuel Ann CRNA)1446 (Stopped - Provider: José Manuel Ann CRNA) sodium chloride 0.9% (NS) flush 10 mL 10 mL, IntraVENous, PRN, line care, Starting on Sat12/26/22 at 1149, Preprocedure, After every IV line use sodium chloride 0.9% (NS) flush 10 mL 10 mL, IntraCATHeter, PRN, line care, before and after blood draws, infusion or medication administration, Starting on Sat12/26/22 at 1218, Use 10 mL or larger syringe. FOR RECORDS PERTAINING TO PATIENTS WHO ARE OR HAVE BEEN ENROLLED IN A CHEMICAL DEPENDENCY/SUBSTANCEABUSE PROGRAM, SOME INFORMATION MAY BE OMITTED. This clinical summary was aggregated from multiple sources. Caution should be exercised in using it in the provision of clinical care. This summary normalizes information from multiple sources, and as a consequence, information in this document may materially change the coding, format and clinical context of patient data. In addition, data may be omitted in some cases. CLINICAL DECISIONS SHOULD BE BASED ON THE PRIMARY CLINICAL RECORDS. [employer] provides no warranty or guarantee of the accuracy or completeness of information in this document.
--- NOTE | 2023-05-28 07:52 | PCM.PSN.6M ---
PSN 6 Minute Walk Test 6 Minute Walk Test 6 Minute Walk Test: 6 Minute Walk Test PSN:6-Minute Walk Test Start: 05/27/23 12:47 Freq: Status: Active Protocol: RESP.6MINW Document 05/27/23 12:30 AEH (Rec: 05/27/23 12:51 AE Desktop) 6 Minute Walk Test Date Performed 05/27/23 Time Performed 12:30 Height 5 ft 6 in Weight: 138 lb Weight in Pounds 138.[address]: Dr Worrell Assistive device used: None Pre-test Oxygen Delivery Method Room Air Pulse Ox 99 Pulse Rate (60-100) 95 Dyspnea Allyssa Scale (0-10) 0.5 Exertion Allyssa Scale (6-20) 6 1st minute Oxygen Delivery Method Room Air Pulse Ox 99 Pulse Rate (60-100) 99 2nd minute Oxygen Delivery Method Room Air Pulse Ox 100 Pulse Rate (60-100) 102 H 3rd minute Oxygen Delivery Method Room Air Pulse Ox 100 Pulse Rate (60-100) 101 H 4th minute Oxygen Delivery Method Room Air Pulse Ox 99 Pulse Rate (60-100) 102 H 5th minute Oxygen Delivery Method Room Air Pulse Ox 98 Pulse Rate (60-100) 101 H 6th minute Oxygen Delivery Method Nasal Cannula Pulse Ox 98 Pulse Rate (60-100) 100 Dyspnea Allyssa Scale (0-10) 1 Exertion Allyssa Scale (6-20) 8 Post-test Oxygen Delivery Method Room Air Pulse Ox 98 Pulse Rate (60-100) 97 Full Laps Walked 16 Partial Lap, Number of Tiles Walked 36 Total Distance Walked (ft) 980 Interpretation Interpretation: The patient ambulated 980 feet over the course of 6 minutes beginning on room air without assistive devices. Pretesting oxygen saturation was noted to be 99% on room air. With ambulation, the maria luisa oxygen saturation was 98%. There was no significant exertional oxygen desaturation. Recommendations Recommendations: There is no indication for the use of supplemental oxygen at this time.
== END | disposition home or self-care (01) ==
LOC: PSN 12:21
PROVIDERS: PCP Student in an Organized Health Care Education/Training Program; Referring Provider Internal Medicine Critical Care Medicine; Visit Provider Internal Medicine Critical Care Medicine
DX: J44.9 Chronic obstructive pulmonary disease, unspecified (principal); C34.90 Malignant neoplasm of unspecified part of unspecified bronchus or lung; F17.211 Nicotine dependence, cigarettes, in remission
CPT/HCPCS: 94618

== ENCOUNTER → 2023-08-20 | Outpatient (CLI) | payer MEDICARE, OTHER, SELFPAY ==
[2023-08-20] MEDS: 0.9 % NaCl (Sterile) Posiflush 10 mL IV (14:55)
--- NOTE | 2023-08-20 15:01 | CT_ITS ---
STUDY: CT CHEST, ABDOMEN T PELVIS WITH CONTRAST REASON FOR EXAM: Male, 67 years old. Met NSCLC;assess respone to treatment RADIATION DOSAGE (If Supplied By Facility): CTDIvol = ( 9.39 ) mGy, DLP = ( 956.75 ) mGycm TECHNIQUE: Transaxial imaging was performed following intravenous administration of 100ML OF ISOVUE 300. Multiplanar coronal and sagittal images were reformatted. Individualized dose optimization techniques were used for this CT. COMPARISON: Comparison is made with prior study dated May 09, 2023. FINDINGS: CHEST A right-sided portacatheter is seen with the tip in the superior vena cava. The patient is status post right pneumonectomy. Stable fluid-filled cavity in the right hemithorax with shift of the heart and mediastinal structures towards the right side of the midline in keeping with the normal expectation of status post right pneumonectomy. There has been no change. Stable minimal scarring in the anterior aspect of the left upper lobe. Normal expansion of the left lung. Stable 0.87 cm nodule in the peripheral lateral aspect of the left lower lobe laterally. There are minimal calcifications of the coronary arteries. Mild degree of coronary artery calcification. Normal mediastinum. Normal hilar regions. Normal unenhanced pulmonary arteries. Normal aorta arch and descending thoracic aorta. There are multi-level degenerative changes of the thoracic spine. ABDOMEN Normal liver. Normal gallbladder and extrahepatic biliary system. Normal spleen. Normal pancreas. Normal bilateral adrenal glands. Normal right kidney. Normal left kidney. Findings suggestive of a superior mesenteric arteries syndrome with the dilatation of the first and second portions of the duodenum as it crosses the space between the superior mesenteric artery and aorta. Normal small intestine. Normal colon. The appendix is visualized and appears normal. There is diffuse atherosclerotic calcification of the abdominal aorta, without a demonstrated aneurysm. Normal inferior vena cava. Normal retroperitoneum. Normal abdominal wall. There are diffuse degenerative changes of the visualized lumbar spine. Stable lucency in the inferior endplate of the L5 vertebra. PELVIS Normal urinary bladder. There is no pelvic fluid. There is no pelvic lymphadenopathy or mass lesion. There is diffuse atherosclerotic calcification of the pelvic arteries. CT/CT Chest, Abd, Pel w/Contrast IMPRESSION: Stable examination. 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 Electronically Signed: Sal Wiseman MD at 13:39 EDT ,
[2023-08-20] MEDS: 0.9% Saline Lock 10 ML Syringe IV (15:05)
== END | disposition home or self-care (01) ==
LOC: CT 14:42
PROVIDERS: PCP Student in an Organized Health Care Education/Training Program; Referring Provider Nurse Practitioner Family; Visit Provider Nurse Practitioner Family
DX: C34.90 Malignant neoplasm of unspecified part of unspecified bronchus or lung (principal); C78.02 Secondary malignant neoplasm of left lung
CPT/HCPCS: 71260; 74177; Q9967; A4216

== ENCOUNTER → 2023-12-31 | Outpatient (CLI) | payer MEDICARE, OTHER, SELFPAY ==
--- NOTE | 2023-12-31 14:38 | CT_ITS ---
EXAM: CT CHEST AND ABDOMEN WITH INTRAVENOUS CONTRAST CLINICAL INDICATION: ASSESS TREATMENT RESPONSE-LUNG CA-IV ONLY TECHNIQUE: Helically acquired images were obtained of the chest and abdomen with intravenous contrast. This CT exam was performed using one or more of the following dose reduction techniques: automated exposure control, adjustment of the mA and/or kV according to patient size, and/or use of iterative reconstruction technique. CONTRAST: IV 100mL Isovue-370 COMPARISON: 08/20/2023 FINDINGS: CHEST: LUNGS AND PLEURAL SPACES: Patient is status post right pneumonectomy. There is a stable fluid-filled cavity in the right chest. There is a stable nodule in the superior segment of the left lower lobe. HEART: Unremarkable. Heart size is normal. No pericardial effusion. MEDIASTINUM: Unremarkable. No mediastinal or hilar adenopathy. Esophagus is unremarkable. No hiatal hernia. THYROID: Unremarkable. No thyroid lesions. ABDOMEN: LIVER: Unremarkable. Homogeneous. No focal mass. GALLBLADDER AND BILE DUCTS: Unremarkable. No calcified gallstones. No gallbladder distention or wall edema. No intra- or extrahepatic biliary ductal dilation. PANCREAS: Unremarkable. No focal cystic or solid mass. SPLEEN: Unremarkable. Normal size without focal cystic or solid mass. ADRENALS: Unremarkable. No nodules. KIDNEYS AND URETERS: Unremarkable. Normal renal size and position. No hydronephrosis. STOMACH AND BOWEL: Unremarkable. No stomach or bowel distention. No focal inflammatory change. INTRAPERITONEAL SPACE: Unremarkable. No ascites or other fluid collection. No free air. CHEST and ABDOMEN: BONES/JOINTS: Unremarkable. No suspicious lytic or blastic abnormality. SOFT TISSUES: Unremarkable. No discrete abdominal wall hernia. VASCULATURE: Unremarkable. Aorta is non-dilated. No aortic dissection. No obvious central pulmonary embolism although this study was not performed with the pulmonary embolism protocol. LYMPH NODES: Unremarkable. No enlarged lymph nodes. CT/CT Chest AND Abd W/ Contrast IMPRESSION: Status post right pneumonectomy. There is a stable nodule in the left lower lobe. There has been no significant change from the reference exam. Electronically Signed: Avtar Dickson MD at 0:06 EDT ,
[2023-12-31] MEDS: 0.9 % NaCl (Sterile) Posiflush 10 mL IV (15:00)
[2023-12-31] MEDS: 0.9% Saline Lock 10 ML Syringe IV (15:00)
== END | disposition home or self-care (01) ==
LOC: CT 14:38
PROVIDERS: PCP Student in an Organized Health Care Education/Training Program; Referring Provider Internal Medicine Medical Oncology; Visit Provider Internal Medicine Medical Oncology
DX: C34.12 Malignant neoplasm of upper lobe, left bronchus or lung (principal)
CPT/HCPCS: 71260; 74160; Q9967; A4216

== ENCOUNTER → 2024-07-07 | Outpatient (CLI) | payer MEDICARE, OTHER, SELFPAY ==
[2024-07-09 13:08] LABS: QNTFERON TB Mitogen Value 8.66 IU/mL (.); QNTFERON TB Nil Value 0.03 IU/mL (.); QNTFERON TB1+ Ag Value 0.04 IU/mL (.); QNTFERON TB2+ Ag Value 0.03 IU/mL (.); QNTIFERON TB Positive Criteria Negative (Negative)
== END | disposition home or self-care (01) ==
LOC: MTLAB 13:16
PROVIDERS: PCP Student in an Organized Health Care Education/Training Program; Referring Provider Physician Assistant Medical; Visit Provider Physician Assistant Medical
DX: L40.0 Psoriasis vulgaris (principal); Z79.899 Other long term (current) drug therapy
CPT/HCPCS: 36415; 86480

== ENCOUNTER → 2024-08-10 | Outpatient (CLI) | payer MEDICARE, OTHER, SELFPAY ==
--- NOTE | 2024-08-10 14:28 | CT_ITS ---
EXAM: CT Chest, Abdomen and Pelvis With Intravenous Contrast CLINICAL INDICATION: LUNG CANCER TECHNIQUE: Axial computed tomography images of the chest, abdomen and pelvis with intravenous contrast. This CT exam was performed using one or more of the following dose reduction techniques: automated exposure control, adjustment of the mA and/or kV according to patient size, and/or use of iterative reconstruction technique. COMPARISON: CT Chest Abdomen Pelvis dated 12/31/2023 FINDINGS: CHEST: LUNGS AND PLEURAL SPACES: Stable right pneumonectomy changes with fluid in the right chest cavity. Stable 9 mm nodule of the left lower lobe. HEART: Unremarkable. No cardiomegaly. No significant pericardial effusion. No significant coronary artery calcifications. MEDIASTINUM: Mediastinal shift to the right, likely from postsurgical changes and volume loss. ABDOMEN: LIVER: Fatty liver. GALLBLADDER AND BILE DUCTS: Unremarkable. No calcified stones. No ductal dilation. PANCREAS: Unremarkable. No ductal dilation. No mass. SPLEEN: Unremarkable. No splenomegaly. ADRENALS: Unremarkable. No mass. KIDNEYS AND URETERS: Unremarkable. No hydronephrosis. No solid mass. STOMACH AND BOWEL: Unremarkable. No obstruction. No mucosal thickening. PELVIS: APPENDIX: No findings to suggest acute appendicitis. BLADDER: Unremarkable. No mass. REPRODUCTIVE: Unremarkable as visualized. CHEST, ABDOMEN and PELVIS: INTRAPERITONEAL SPACE: Of note, the entire pelvis is not included in the current study. No significant fluid collection. No free air. BONES/JOINTS: Stable osseous structures. No acute fracture. No dislocation. SOFT TISSUES: Unremarkable. VASCULATURE: Scattered calcified atherosclerotic disease of aorta. No aortic aneurysm. LYMPH NODES: Unremarkable. No enlarged lymph nodes. CT/CT Chest AND Abd W/ Contrast IMPRESSION: 1. Stable right pneumonectomy changes with fluid in the right chest cavity. 2. Stable 9 mm nodule of the left lower lobe. 3. No significant change from the prior exam. Reading Location: [id number]
== END | disposition home or self-care (01) ==
PROVIDERS: PCP Student in an Organized Health Care Education/Training Program; Referring Provider Internal Medicine Medical Oncology; Visit Provider Internal Medicine Medical Oncology
DX: C34.91 Malignant neoplasm of unspecified part of right bronchus or lung (principal); C78.02 Secondary malignant neoplasm of left lung
CPT/HCPCS: 71260; 74160; Q9967

== ENCOUNTER → 2024-09-24 | Outpatient (CLI) | payer MEDICARE, OTHER, SELFPAY ==
--- NOTE | 2024-09-24 10:04 | EKG12_ITS ---
Test Reason : NEW MED Blood Pressure : */* mmHG Vent. Rate : 67 BPM Atrial Rate : 67 BPM P-R Int : 136 ms QRS Dur : 84 ms QT Int : 380 ms P-R-T Axes : -10 39 -32 degrees QTcB Int : 401 ms Normal sinus rhythm with sinus arrhythmia T wave abnormality, consider inferior ischemia Abnormal ECG Confirmed by DEACON BOLAÑOS, JANELLE ([id number]), newspaper editor VIDHI HURTADO ([id number]) on 09/25/2024 1:04:49 PM Referred By: José Manuel Leon Confirmed By: JANELLE WORTHY MD
== END | disposition home or self-care (01) ==
LOC: PSN 10:03
PROVIDERS: PCP Student in an Organized Health Care Education/Training Program; Referring Provider Internal Medicine Medical Oncology; Visit Provider Internal Medicine Medical Oncology
DX: C34.90 Malignant neoplasm of unspecified part of unspecified bronchus or lung (principal); C78.7 Secondary malignant neoplasm of liver and intrahepatic bile duct
CPT/HCPCS: 93005

== ENCOUNTER → 2024-11-24 | Outpatient (CLI) | payer MEDICARE, SELFPAY ==
--- NOTE | 2024-11-24 14:02 | EKG12_ITS ---
Test Reason : PRE MED SCANNING Blood Pressure : */* mmHG Vent. Rate : 69 BPM Atrial Rate : 69 BPM P-R Int : 132 ms QRS Dur : 82 ms QT Int : 406 ms P-R-T Axes : -22 44 60 degrees QTcB Int : 435 ms Normal sinus rhythm Normal ECG Confirmed by VINNIE BOLAÑOS, MAITE ([id number]), editor dictionary VIDHI HURTADO ([id number]) on 11/25/2024 9:33:33 AM Referred By: José Manuel Leon Confirmed By: MAITE BIRMINGHAM MD
== END | disposition home or self-care (01) ==
LOC: PSN 09:36
PROVIDERS: PCP Student in an Organized Health Care Education/Training Program; Referring Provider Internal Medicine Medical Oncology; Visit Provider Internal Medicine Medical Oncology
DX: Z01.818 Encounter for other preprocedural examination (principal); C78.7 Secondary malignant neoplasm of liver and intrahepatic bile duct; C34.91 Malignant neoplasm of unspecified part of right bronchus or lung; Z79.899 Other long term (current) drug therapy
CPT/HCPCS: 93005

== ENCOUNTER → 2025-01-12 | Outpatient (CLI) | payer MEDICARE, OTHER, SELFPAY ==
--- NOTE | 2025-01-12 12:50 | CT_ITS ---
PROCEDURE: CT CHEST AND ABD W/ CONTRAST 01/12/2025 REASON FOR EXAM: LUNG CA Right pneumonectomy. Current immunotherapy. TECHNIQUE: Chest and abdomen CT with intravenous contrast. Coronal and Sagittal reconstruction series were provided. One or more dose reduction techniques were used (e.g., Automated exposure control, adjustment of the mA and/or kV according to patient size, use of iterative reconstruction technique. PATIENT PREPARATION: Per protocol ORAL CONTRAST TYPE: None. CONTRAST: Isovue 370 VOLUME: 75mL RADIATION DOSE SUMMARY: CTDlvol: 21 mGy DLP: 502 mGycm COMPARISON: September 01, 2024, August 10, 2024 FINDINGS: CT CHEST: Hardware: Right Port-A-Cath is in place. Lymph nodes: None appear enlarged. Right axillary node measuring 12 mm round is unchanged on image 47. Subpleural nodule posterior aspect of the right upper thorax on image 69 is 1.5 x 0.7 cm. This was previously metabolic on prior PET. Heart and Vasculature: Normal-size. No pericardial effusion. Xhqyrxti-[id number]-ccyiyw three-vessel coronary artery disease. Mild atherosclerosis of the aorta. Lungs and Airways: The nodularity in the right upper lobe that previously showed metabolic activity is unchanged. In the superior segment there are 2 nodules adjacent to the major fissure that are unchanged in size and morphology. The more medial nodule is 8 mm in the more lateral is 12 mm. Unchanged when measured similarly. No new mass or nodule. Right pneumonectomy has been performed. Fluid is seen in the pneumonectomy space. Mild complexity to the fluid. There is some thickening of the parietal pleura. Pleura: No pneumothorax or pleural effusion on the left side. CT ABDOMEN: Liver: Normal size. No mass. Gallbladder: Normal Spleen: Normal. Small splenule. Pancreas: Normal Adrenals: Normal Kidneys: No collecting system dilation or calculus. Bowel: The stomach, partially imaged small bowel and colon are unremarkable. Proximal appendix is normal. Lymph nodes: None appear enlarged. Vasculature: Advanced atherosclerosis without aneurysm. Peritoneum / Retroperitoneum: No mass, free fluid or free air. Bones: Unremarkable. CT/CT Chest AND Abd W/ Contrast IMPRESSION: 1. No new mass or nodule in the left lung. No change. 2. Right pneumonectomy. Fluid in the pneumonectomy space with thickening of t he wall of the pneumonectomy space. No change from prior. Subpleural nodule is again noted and did show some metabolic activ ity on prior PET. 3. No abnormal lesion in the abdomen. Reading Location: [id number]
[2025-01-12] MEDS: 0.9 % NaCl (Sterile) Posiflush 10 mL IV (13:15)
[2025-01-12] MEDS: 0.9% Saline Lock 10 ML Syringe IV (13:21)
== END | disposition home or self-care (01) ==
PROVIDERS: PCP Student in an Organized Health Care Education/Training Program; Referring Provider Internal Medicine Medical Oncology; Visit Provider Internal Medicine Medical Oncology
DX: C34.32 Malignant neoplasm of lower lobe, left bronchus or lung (principal)
CPT/HCPCS: 71260; 74160; Q9967; A4216

== ENCOUNTER → 2025-03-08 | Outpatient (CLI) | payer MEDICARE, OTHER, SELFPAY ==
--- NOTE | 2025-03-08 13:00 | PROSBIL_PTH ---
PATIENT: LARA MARTÍNEZ LOC: [facility] U#:[id number] AGE/SX: 69/M ROOM: RE03/08/[address]: Dr. Kp Fraser MD : [id number] BED: DIS: 03/08/2025 SPEC #: [id number] RECD: 03/08/25 14:36 STATUS: ELIZ REQ #: [id number] LETY: 03/08/25 13:[address]: Kp Fraser DEPT: SURGICAL PATHOLOGY RECD BY: Eugene Morgan ENTERED: 03/09/25 08:59 SP TYPE: PROST BX ISHAN DR: Dr. Raj Askew DO Tissues: A - PROSTATE RIGHT B - PROSTATE RIGHT C - PROSTATE RIGHT D - PROSTATE LEFT E - PROSTATE LEFT F - PROSTATE LEFT Procedures: PROSTATE BX Immunohistochemical Stains HEADER OPERATION: Prostate biopsy PRE-OP DIAGNOSIS: Elevated PSA TISSUE SUBMITTED: A - Right apex, B - Right mid, C - Right base, D - Left apex, E - Left mid, F - Left base MICROSCOPIC DIAGNOSIS A. Prostate, right, apex, biopsy: - Adenocarcinoma [facility] score 3+4=7 (20% pattern 4), involving one of one core and 20% of the tissue. B. Prostate, right, mid, biopsy: - High grade PIN (prostatic intraepithelial neoplasia). - PIN4 IHC supports the histologic impression. C. Prostate, right, base, biopsy: - Benign prostate. D. Prostate, left, apex, biopsy: - Benign tissue. E. Prostate, left, mid, biopsy: - Benign prostate. F. Prostate, left, base, biopsy: - Benign prostate. MICROSCOPIC DESCRIPTION Slides are reviewed. All matched controls reacted appropriately. These tests were developed and their performance characteristics determined by [facility]. They may not have been cleared or approved by the U.S. Food and Drug Administration. The FDA has determined that such clearance or approval is not necessary. The above immunohistochemical markers are reviewed by the Pathologist. GROSS DESCRIPTION Received in 6 formalin containers labeled with the patient's name and date of . Designated as: A. RA is a avila tissue core, 2.1 cm in length by 0.1 cm in diameter. Entirely submitted in 1 cassette. B. RM is a avila tissue core, 1.3 cm in length by 0.1 cm in diameter. Entirely submitted in 1 cassette. C. RB is a avila tissue core, 1.4 cm in length by 0.1 cm in diameter. Entirely submitted in 1 cassette. D. LA is a avila tissue core, 1.9 cm in length by 0.1 cm in diameter. Entirely submitted in 1 cassette. E. LM is a avila tissue core, 1.1 cm in length by 0.1 cm in diameter. Entirely submitted in 1 cassette. F. LB is a avila tissue core, 1.8 cm in length by 0.1 cm in diameter. Entirely submitted in 1 cassette. MA 5CPT:[id number]
== END | disposition home or self-care (01) ==
LOC: LABSPEC 14:45
PROVIDERS: PCP Student in an Organized Health Care Education/Training Program; Referring Provider Urology; Visit Provider Urology
DX: C61 Malignant neoplasm of prostate (principal)
CPT/HCPCS: 88305; 88342; G0416